=== PATIENT | male | born 1980 | race Two or more races ===

== ENCOUNTER 2016-08-21 21:16 | Observation (INO) | payer MEDICAID ==
--- NOTE | 2016-08-21 21:39 | EDPHY ---
HPI/HX/ROS/PE/MDM Narrative: Chief complaint: Cough, chills, alcohol intoxication HPI: 35-year-old homeless male presenting with 1 week of cough, difficulty breathing, productive sputum, fevers and chills. Patient does admit to drinking alcohol this evening. Patient states that he is coughing up green mucus and having some difficulty breathing. EMS noted that he was hypoxic in the 80s. This improved with supplemental oxygen. Patient does not smoke. Does drink heavily daily alcohol. Denies other drug use. ROS: 10 point Review of Systems is negative except as noted in the HPI. Physical exam: Gen: Awake, Alert, No Distress, slurred speech, smells of alcohol HEENT: Nose: no rhinorrhea Eyes: PERRLA, EOMI Mouth: Moist mucosa Neck: Supple, no JVD Chest: nontender, diffuse expiratory wheeze. No focal rales or rhonchi Heart: S1, S2 normal, no murmur Abd: Soft, non-tender, no guarding Back: no CVA tenderness, no midline tenderness Ext: no edema, non-tender Skin: no rash Neuro: CN II-XII intact, Sensation grossly intact, Strength 5/5 in bilateral upper and lower extremities ED Course: Chest XR Impression: Findings consistent with airways disease are noted. Dictated By: Yayo Lane MD Patient received DuoNeb. Was placed on supplemental oxygen. On reexamination he was feeling better. Wheezes had improved. Unfortunately he continued to remain hypoxic when attempting to wean off oxygen. He does not have a history of COPD. Chest x-ray does not show any focal infiltrate. I have discussed with the hospitalist, Dr. Hernandez. Head will be to admit the patient to the floor likely observation unit for further treatment of acute bronchitis with hypoxemia. - Data Points Laboratory Results: 08/21/16 21:28 Influenza Typ A,B (DFA) NEGATIVE FOR FLU (NEGATIVE) General Time Seen by Provider: 08/21/16 21:34 Initial Vital Signs: Initial Vital Signs Temperature (C) 36.8 C 08/21/16 21:19 Heart Rate 101 H 08/21/16 21:19 Respiratory Rate 18 08/21/16 21:19 Blood Pressure 133/89 H 08/21/16 21:19 O2 Sat (%) 89 L 08/21/16 21:19 O2 Delivery Mode Room Air O2 (L/minute) 2 Allergies/Adverse Reactions: No Known Allergies Allergy (Verified 06/07/16 17:02) Home Medications: Medication Instructions Recorded ARIPiprazole [Abilify 10 mg (*)] 10 mg PO DAILY 06/07/16 Hiv Meds 06/07/16 busPIRone [Buspar (*)] 5 mg PO 06/07/16 Departure - Departure Disposition: [facility] Clinical Impression: Alcohol dependence, Acute bronchitis Condition: Fair
[2016-08-21] MEDS ORDERED: IPRATROPIUM/ALBUTEROL 3 ML DEYVIAL IH ONE (21:53)
--- NOTE | 2016-08-21 22:16 | DX ---
PA and Lateral Chest History: Cough and shortness of breath in a 35-year-old male. Findings: The heart and mediastinal contours are normal. Pulmonary vascularity is normal. There is c entral peribronchial thickening. Streaky perihilar opacities are noted. There are no alveolar opaciti es seen to suggest pneumonia. No pleural effusion is identified. Impression: Findings consistent with airways disease are noted.
[2016-08-21] MEDS ORDERED: NS 1,000 ML IV ONE (23:18)
[2016-08-22] MEDS ORDERED: predniSONE 20 MG TAB PO SCH
[2016-08-22] MEDS ORDERED: ALBUTEROL 60 PUFFS/8 GM MDI IH SCH
[2016-08-22] MEDS ORDERED: AZITHROMYCIN 250 MG TAB PO SCH
[2016-08-22 00:15] LABS: % IMMATURE GRANULYOCYTES 0.4 % (0.0-1.1); ABSOLUTE IMMATURE GRANULOCYTES 0.02 10^3/uL (0.00-0.10); ADD DIFF? NO; ADD MORPH? NO; ADD SCAN? NO; ATYPICAL LYMPHOCYTE FLAG 30 (0-99); FRAGMENT RBC FLAG 0 (0-99); HEMATOCRIT 41.7 % (40.0-51.0); HEMOGLOBIN 13.9 g/dL (13.7-17.5); LEFT SHIFT FLG 0 (0-99); LIPEMIA HEMOLYSIS FLAG 80 (0-99); MEAN CELL HEMOGLOBIN 32.6 pg (27.9-34.1); MEAN CELL HEMOGLOBIN CONCENTR. 33.3 g/dL (32.4-36.7); MEAN CELL VOLUME 97.7 fL (81.5-99.8); PLATELET CLUMPS FLAG 10 (0-99); PLATELET COUNT 276 10^3/uL (150-400); RED BLOOD CELL COUNT 4.27 10^6/uL (4.40-6.38); RED CELL DISTRIBUTION WIDTH 14.9 % (11.5-15.2)
[2016-08-22 00:54] LABS: ANION GAP 9 mEq/L (8-16); CALCIUM 8.1 mg/dL (8.5-10.4); CARBON DIOXIDE 29 mEq/l (22-31); CHLORIDE 110 mEq/L (97-110); CREATININE 0.7 mg/dL (0.7-1.3); GLOMERULAR FILTRATION RATE > 60; GLUCOSE 112 mg/dL (70-100); POTASSIUM 4.4 mEq/L (3.5-5.2); SODIUM 148 mEq/L (134-144)
[2016-08-22] MEDS ORDERED: ALBUTEROL 3 ML DEYVIAL IH PRN (01:40)
[2016-08-22] MEDS ORDERED: ONDANSETRON 4 MG/2 ML VIAL IVP PRN (01:40)
[2016-08-22] MEDS ORDERED: ACETAMINOPHEN 325 MG TAB PO PRN (01:40)
[2016-08-22] MEDS ORDERED: ONDANSETRON DISINTEGRATING 4 MG TAB PO PRN (01:40)
[2016-08-22] MEDS ORDERED: chlordiazePOXIDE 25 MG CAP PO PRN (01:43)
[2016-08-22] MEDS ORDERED: LORazepam 2 MG/ML INJ IVP PRN (01:43)
[2016-08-22] MEDS ORDERED: THIAMINE HCL 500 MG in NS 100 ML IV ONE (01:43)
[2016-08-22] MEDS ORDERED: LORazepam 1 MG TAB PO PRN (01:43)
[2016-08-22] MEDS ORDERED: 1/2 NS 1,000 ML IV SCH (02:00)
--- NOTE | 2016-08-22 03:06 | GHP ---
[f rep st] HISTORY AND PHYSICAL DATE OF ADMISSION: 08/22/2016 CHIEF COMPLAINT: Shortness of breath. HISTORY OF PRESENT ILLNESS: This is a 35-year-old male with a history of asthma, who is homeless. Alice winchester says that over the last 2 weeks, he has had a productive cough with sputum production. He states t hat today he has been having more shortness of breath, probably due to the cold. He denies any fever s or chills. He also does drink alcohol and did actually come from the [facility]. He does go into F[place] at times. The patient also admits to being HIV positive. REVIEW OF SYSTEMS: A 10-point review of systems was obtained and except as above was negative. PAST MEDICAL HISTORY: 1. HIV positive. He is not on any medications. He was seeing a physician in [place], [place]. 2. PTSD/bipolar/possible schizophrenia. MEDICATIONS: None. SOCIAL HISTORY: He does smoke marijuana. No tobacco. He does drink significant alcohol. Moved her e recently from [place], [place]. FAMILY HISTORY: Reviewed and not contributory. PHYSICAL EXAM: VITAL SIGNS: Afebrile, blood pressure is 133/89, heart rate of 101, oxygen saturatio n 89% on 2 L. GENERAL: The patient is well developed, no apparent distress. HEENT: Nonicteric scl erae. Extraocular movements intact. Moist mucous membranes. NECK: Supple. No thyromegaly. LUNGS : Good effort. Decreased breath sounds, but no wheezes or rhonchi. CARDIOVASCULAR: Regular rate a nd rhythm. No murmurs or gallops. ABDOMEN: Positive bowel sounds. Soft, nontender, nondistended. No hepatosplenomegaly. EXTREMITIES: No clubbing, cyanosis, or edema. SKIN: Without rash. Turgor intact. NEUROLOGIC: Alert and oriented x3. Moving all 4 extremities equally. PSYCH: Normal affec t. LABS: CBC is normal. Chemistry does show a sodium of 148, but otherwise normal. Influenza is negat charlene. Chest x-ray, I personally reviewed and interpreted, does not show pneumonia. ASSESSMENT: This is a 35-year-old male presenting with a history of human immunodeficiency virus, presenting with asthma exacerbation. PLAN: 1. Asthma exacerbation. Patient actually sounds pretty good, although he is a little bit hypoxic. We will start with prednisone as well as nebulizer treatments. Since he has had a cough for 2 weeks, we will add azithromycin as well. 2. HIV. We will check a CD4 count. 3. Alcoholism with possible alcohol withdrawal. We will place him on CIWA protocol. 4. Psychiatric disorders. Continue to monitor. /[id number]/MODL
[2016-08-22] MEDS: predniSONE 20 MG TAB PO SCH ×2 (03:33→08:20)
[2016-08-22] MEDS: AZITHROMYCIN 250 MG TAB PO SCH ×2 (03:33→08:19)
[2016-08-22] MEDS: IPRATROPIUM/ALBUTEROL 3 ML DEYVIAL IH SCH ×2 (05:24→10:01)
[2016-08-22 08:16] LABS: % IMMATURE GRANULYOCYTES 0.9 % (0.0-1.1); ABSOLUTE IMMATURE GRANULOCYTES 0.05 10^3/uL (0.00-0.10); ADD DIFF? NO; ADD MORPH? NO; ADD SCAN? NO; ATYPICAL LYMPHOCYTE FLAG 10 (0-99); FRAGMENT RBC FLAG 0 (0-99); HEMATOCRIT 40.5 % (40.0-51.0); HEMOGLOBIN 13.5 g/dL (13.7-17.5); LEFT SHIFT FLG 10 (0-99); LIPEMIA HEMOLYSIS FLAG 80 (0-99); MEAN CELL HEMOGLOBIN 32.7 pg (27.9-34.1); MEAN CELL HEMOGLOBIN CONCENTR. 33.3 g/dL (32.4-36.7); MEAN CELL VOLUME 98.1 fL (81.5-99.8); MEAN PLATELET VOLUME 9.2 fL (8.7-11.7); PLATELET CLUMPS FLAG 0 (0-99); PLATELET COUNT 252 10^3/uL (150-400); RED BLOOD CELL COUNT 4.13 10^6/uL (4.40-6.38); RED CELL DISTRIBUTION WIDTH 14.9 % (11.5-15.2)
[2016-08-22 08:44] LABS: ANION GAP 11 mEq/L (8-16); CALCIUM 8.3 mg/dL (8.5-10.4); CARBON DIOXIDE 26 mEq/l (22-31); CHLORIDE 106 mEq/L (97-110); CREATININE 0.7 mg/dL (0.7-1.3); GLOMERULAR FILTRATION RATE > 60; GLUCOSE 115 mg/dL (70-100); MAGNESIUM 1.6 mg/dL (1.6-2.3); POTASSIUM 4.4 mEq/L (3.5-5.2); SODIUM 143 mEq/L (134-144)
[2016-08-22 09:08] VITALS: BP 139/88; TEMP 98.4
[2016-08-22 10:03] VITALS: PULSE 98; RESP 18; O2SAT 94
[2016-08-22] MEDS ORDERED: chlordiazePOXIDE 25 MG CAP PO ONE (10:30)
[2016-08-22] MEDS ORDERED: ALBUTEROL 60 PUFFS/8 GM MDI IH PRN (13:50)
--- NOTE | 2016-08-22 16:18 | GDS ---
[f rep st] DISCHARGE SUMMARY DISCHARGE DIAGNOSES: Include: 1. Acute asthma exacerbation. 2. Human immunodeficiency virus. 3. Alcohol withdrawal. 4. Posttraumatic stress disorder. 5. Bipolar disorder. HISTORY OF PRESENT ILLNESS: A 35-year-old male, who presented with complaints of shortness of breath . For details of patient's initial presentation, please see the history and physical dated 7. CONSULTATIVE SERVICES: None. PROCEDURES: Patient had a PA and lateral chest x-ray that showed airways disease, no infiltrates. HOSPITAL COURSE BY ISSUE: 1. Acute asthma exacerbation: Patient presented hypoxic and wheezy, initiated on steroids, inhaled beta agonist. At the time of his disposition, patient is satting mid 90s on room air and his lung ex am is clear. Will continue 4 additional days of prednisone burst with inhaled albuterol as an outpat ient. additionally, because his symptoms had extended for a long prior to his presentation he has bee n initiated on a Z-Mynor to treat any atypical pneumonias. Patient will complete that Z-Mynor after disp osition. 2. Acute alcohol withdrawal: Patient is quite tremulous on examination. He is currently a resident at the [facility], treating with Eliza and discharging back to the [facility] for ongoing cessation support. MEDICATIONS AT THE TIME OF DISPOSITION: Please reference medication reconciliation printed on 2016. PENDING STUDIES AT THE TIME OF THIS DICTATION: None. FOLLOWUP APPOINTMENTS: For this patient include with his primary care provider for reinitiation of h is home medications, including his antiretrovirals. I spent greater than 30 minutes in the planning and coordination of this discharge. /[id number]/MODL
[2016-08-23] MEDS ORDERED: THIAMINE HCL 500 MG in NS 100 ML IV SCH (09:00)
[2016-08-24 08:13] LABS: H/S RATIO 0.4 (>=0.9); LYMPHOCYTES 1.28 thou/mcL (0.82-2.84)
[2016-08-25] MEDS ORDERED: THIAMINE HCL 100 MG TAB PO SCH (09:00)
== END 2016-08-22 15:00 | disposition home or self-care (01) ==
LOC: EDUNIT# → F2W 08-22 03:12
PROVIDERS: ADMIT Internal Medicine; ATTEND Internal Medicine
DX: J45.901 Unspecified asthma with (acute) exacerbation (principal); B20 Human immunodeficiency virus [HIV] disease; F10.239 Alcohol dependence with withdrawal, unspecified; F43.10 Post-traumatic stress disorder, unspecified; F31.9 Bipolar disorder, unspecified; F12.10 Cannabis abuse, uncomplicated; Z59.0 Homelessness
CPT/HCPCS: 71020; 96360; 99285; G0378; 86359-90; 86360-90; J3411; J7512

== ENCOUNTER 2016-08-29 19:00 | Emergency (ER) | payer MEDICAID ==
--- NOTE | 2016-08-29 19:05 | EDPHY ---
H & P Smoking Status: Current every day smoker Time Seen by Provider: 08/29/16 19:05 HPI/ROS: CHIEF COMPLAINT: Altered mental status HISTORY OF PRESENT ILLNESS: Brought in by EMS found him in back of a building arguing with someone else. Skated and could stand up. Brought to the ED on are cold. REVIEW OF SYSTEMS: Patient denies trauma or any medical complaints for review of systems is limited by his intoxication. PAST MEDICAL HISTORY: Per previous chart includes HIV and alcoholism. Per Dr. Perez's discharge summary dated 08/22/2016, includes asthma and bipolar disorder. Social history: Alcohol today General Appearance: Lethargic, awakens to loud voice or sternal rub. Eyes: No scleral icterus. ENT, Mouth: Normal mucous membranes. Sticks out his tongue on command, no tongue laceration or abrasion. No external evidence of head or neck trauma. Respiratory: Normal respiratory effort, breath sounds equal, lungs are clear to auscultation. Cardiovascular: Regular rate and rhythm. Gastrointestinal: Abdomen is soft and non tender. Neurological: Lethargic, slurred speech, limited response to questions. Does follow commands. Spontaneous movement of all 4 extremities. Skin: Warm and dry, no rashes. No laceration or abrasion. Musculoskeletal: No extremity deformity or tenderness. No cervical thoracic or lumbar spine tenderness. Psychiatric: Unable on arrival due to altered mental status. Emergency Department course/MDM: I-STAT performed in emergency department. Patient presentation consistent with his self admitted alcohol ingestion. I-STAT performed shows normal glucose. Signed out to Dr. Rasheed at 9:30 p.m. with plan for serial examinations and discharge to detox when clinically sober. (Jordy Rios) Constitutional: Initial Vital Signs Temperature (C) 36.4 C 08/29/16 19:07 Heart Rate 85 08/29/16 19:07 Respiratory Rate 16 08/29/16 19:07 Blood Pressure 119/81 H 08/29/16 19:07 O2 Sat (%) 87 L 08/29/16 19:07 O2 Delivery Mode Nasal Cannula O2 (L/minute) 2 Allergies/Adverse Reactions: No Known Allergies Allergy (Verified 06/07/16 17:02) Home Medications: Medication Instructions Recorded ARIPiprazole [Abilify 10 mg (*)] 20 mg PO DAILY 08/22/16 Albuterol [Ventolin Hfa Inhaler] 2 puffs IH Q2 PRN #1 mdi 08/22/16 Azithromycin [Zithromax] 250 mg PO DAILY #5 tab 08/22/16 Dolutegravir Sodium [Tivicay] 50 mg PO DAILY 08/22/16 Emtricitabine/Tenofovir [Truvada 1 tab PO DAILY 08/22/16 200MG/300MG (*)] busPIRone [Buspar (*)] 10 mg PO BID 08/22/16 predniSONE 40 mg PO DAILY #8 tablet 08/22/16 Medical Decision Making Differential Diagnosis: Differential diagnosis considered for altered mental status including but not limited to hypoglycemia, infectious process, electrolyte abnormality, head injury and intoxicants. (Jordy Rios) Other Provider: I assumed care of this patient from Dr. Rios at 9:30 p.m.. We are awaiting improvement in his functional status. I examined him at 11:15 p.m.. At that time he is asleep, response to vigorous stimulation with brief eye opening, quickly falls back to sleep. He is not yet appropriate for [facility] to the [facility]. His care will be transferred to Dr. Soto at 11: 15 p.m.. (Natalie Rasheed) - Data Points Laboratory Results: 08/29/16 19:40 POC Hgb 16.0 gm/dL (14.5-17.3) POC Hct 47 % (42.8-50.6) POC Sodium 150 H mEq/L (134-144) POC Potassium 3.6 mEq/L (3.3-5.0) POC Chloride 111 H mEq/L (96-108) POC BUN 7 mg/dL (7-23) POC Creatinine 1.4 mg/dL (0.8-1.5) POC Glucose 89 mg/dL (70-100) Point of Care Test Results: 08/29/16 19:40 POC Sodium 150 H POC Potassium 3.6 POC Chloride 111 H POC BUN 7 POC Creatinine 1.4 POC Glucose 89 Departure - Departure Disposition: Home, Routine, Self-Care Clinical Impression: Alcohol intoxication Qualifiers: Complication of substance-induced condition: uncomplicated Qualifier Code: ( F10.120) Alcohol abuse with intoxication, uncomplicated Condition: Good Instructions: Alcohol Intoxication (ED) Referrals: [facility] [Outside] - As per Instructions
[2016-08-29 19:09] VITALS: RESP 16; TEMP 97.5
[2016-08-30 02:46] VITALS: BP 103/66; PULSE 68; O2SAT 95
[2016-08-30] MEDS ORDERED: CHLORDIAZEPOXIDE 25MG PREPK#6 BTL TAKEHOME ONE (02:55)
== END 2016-08-30 03:05 | disposition home or self-care (01) ==
LOC: EDUNIT# → EDBD
DX: F10.120 Alcohol abuse with intoxication, uncomplicated (principal); F17.200 Nicotine dependence, unspecified, uncomplicated
CPT/HCPCS: 82947-QW

== ENCOUNTER 2016-08-30 19:54 | Emergency (ER) | payer MEDICAID ==
[~2016-08-30 19:54] MED LIST: OSELTAMIVIR PHOSPHATE 75 MG CAP PO SCH
[2016-08-30 20:20] VITALS: TEMP 98.4
[2016-08-30] MEDS ORDERED: BENZONATATE 100 MG CAP PO ONE (20:40)
[2016-08-30] MEDS ORDERED: IBUPROFEN 200 MG TAB PO ONE (20:40)
[2016-08-30] MEDS ORDERED: OSELTAMIVIR PHOSPHATE 75 MG CAP PO ONE (20:41)
--- NOTE | 2016-08-30 20:46 | EDPHY ---
H & P Time Seen by Provider: 08/30/16 20:23 HPI/ROS: HPI Cough, sore throat, joint aches, headache. 35-year-old male by ambulance from the [facility]. Patient was seen here last night for alcohol intoxication and disposition to the [facility]. He was seen here and admitted for 1 night on August 22 for bronchitis with hypoxia. He was treated with azithromycin at that time. He presents now complaining of a sore throat, dry cough, joint aches and intermittent gradual onset headache since earlier today. ROS: Constitutional: No fever, no chills. As above. Eyes: No discharge. No changes in vision. ENT: As above. No nasal congestion or rhinorrhea. Respiratory: As above. No shortness of breath. Cardiac: No chest pain, no palpitations. Gastrointestinal: No abdominal pain, no vomiting, no diarrhea. Genitourinary: No hematuria. No dysuria or increased frequency with urination. Musculoskeletal: No back pain. No neck pain. No myalgias or arthralgias. Skin: No rashes. Neurological: As above. No focal weakness or altered sensation. Past medical history: Asthma, bronchitis, alcohol abuse, alcohol withdrawal, PTSD, bipolar, HIV. Last CD4 count was 195 on admission September 11. Social history: Homeless. Smoker. As above. Physical Exam: General Appearance: Alert, no distress. This patient is responding to questions appropriately and in full sentences. This patient appears well- hydrated and well-nourished. Eyes: Pupils equal and round no pallor or injection. No lid edema, erythema or injection. ENT, Mouth: Mucous membranes are moist. The pharyngeal tissues are mildly erythematous. No edema or swelling. No asymmetry suggestive of abscess. No exudates. Respiratory: There are no retractions, lungs are clear to auscultation with good air movement bilaterally. No wheezing. No rhonchi. No tachypnea. Cardiovascular: Regular rate and rhythm. No murmur. Neurological: Motor sensory function is grossly intact. Cranial nerves are normal. Gait is normal. Skin: Warm and dry, no rashes. Musculoskeletal: Neck is supple and nontender. No cervical, submental, submandibular lymphadenopathy. Extremities are symmetrical. All joints range without pain or impingement. Psychiatric: No agitation. No depression. Database: EKG: Imaging: Chest x-ray PA and lateral; the cardiac mediastinal silhouette is unremarkable. No evidence of infiltrate or pneumothorax. Mild bronchitis. No other acute cardiopulmonary disease process noted. Interpreted by me. Procedures: Emergency department course: Patient's vital signs were reviewed. Tachypnea at 24 in triage. Otherwise afebrile vital signs were unremarkable. Moderately hypertensive. He will be sent for chest x-ray. He was given 800 mg of oral ibuprofen and 200 mg of Tessalon parole. His presentation is consistent with influenza. He was given 75 mg of Tamiflu. 9:00 p.m., patient re-evaluated. Resting comfortably at this time. Results of his chest x-ray discussed with him. He feels comfortable being discharged. We will fill his prescription for Tamiflu through our assistance program. I discussed ibuprofen dosing for his sore throat. Follow up with his primary care physician at [facility] was reviewed. Return to emergency department precautions discussed. All of his questions were answered. He was discharged in good condition. Differential Diagnosis: The differential diagnosis on this patient includes but is not limited to viral upper respiratory infection, influenza, bronchitis. Serious bacterial infection unlikely. This represents a partial list of diagnoses considered. These considerations are based on history, physical exam, past history, reassessment and diagnostic testing. Smoking Status: Current every day smoker Constitutional: Initial Vital Signs Temperature (C) 36.9 C 08/30/16 20:13 Heart Rate 90 08/30/16 20:13 Respiratory Rate 24 H 08/30/16 20:13 Blood Pressure 162/102 H 08/30/16 20:13 O2 Sat (%) 97 08/30/16 20:13 O2 Delivery Mode Room Air Allergies/Adverse Reactions: No Known Allergies Allergy (Verified 08/30/16 20:11) Home Medications: Medication Instructions Recorded ARIPiprazole [Abilify 10 mg (*)] 20 mg PO DAILY 08/22/16 Albuterol [Ventolin Hfa Inhaler] 2 puffs IH Q2 PRN #1 mdi 08/22/16 Azithromycin [Zithromax] 250 mg PO DAILY #5 tab 08/22/16 Dolutegravir Sodium [Tivicay] 50 mg PO DAILY 08/22/16 Emtricitabine/Tenofovir [Truvada 1 tab PO DAILY 08/22/16 200MG/300MG (*)] busPIRone [Buspar (*)] 10 mg PO BID 08/22/16 predniSONE 40 mg PO DAILY #8 tablet 08/22/16 Oseltamivir Phosphate [Tamiflu 75 75 mg PO BID #10 cap 08/30/16 mg (RX)] Departure - Departure Disposition: Home, Routine, Self-Care Clinical Impression: Influenza, Bronchitis Condition: Good Instructions: Influenza (ED) Additional Instructions: Read and follow provided instructions. Follow-up with your primary care physician in 2-3 days, [facility], at the walk-in clinic off of [facility]. Take medication as prescribed through entire course of treatment. Ibuprofen dosin mg every 6 hours with meals for the next 3 days only. Return to the emergency department for worsening sore throat, cough, high fever or other serious concerns. Referrals: NONE *PRIMARY CARE P,. [Primary Care Provider] - As per Instructions [facility] [Outside] - As per Instructions Prescriptions: Oseltamivir Phosphate [Tamiflu 75 mg (RX)] 75 mg PO BID #10 cap
--- NOTE | 2016-08-30 20:57 | DX ---
Chest, PA and lateral. HISTORY: Dyspnea, cough. Comparison: 21 August 2016. FINDINGS: Heart size is within normal limits. Pulmonary vascularity appears normal. The lungs are keaton ar. No evidence for pleural effusion or pneumothorax. No significant osseous abnormality. IMPRESSION: Normal chest x-ray.
[2016-08-30 21:35] VITALS: BP 153/89; PULSE 91; RESP 16; O2SAT 93
== END 2016-08-30 21:35 | disposition home or self-care (01) ==
DX: J11.1 Influenza due to unidentified influenza virus with other respiratory manifestations (principal); J40 Bronchitis, not specified as acute or chronic; F17.200 Nicotine dependence, unspecified, uncomplicated; B20 Human immunodeficiency virus [HIV] disease

== ENCOUNTER 2017-02-04 08:16 | Emergency (ER) | payer MEDICAID ==
[2017-02-04 08:22] VITALS: RESP 16; TEMP 98.2
[2017-02-04] MEDS ORDERED: SULFAMETHOX/TMP 800/160 MG 1 TAB PO ONE (09:17)
[2017-02-04] MEDS ORDERED: CEPHALEXIN 500 MG CAP PO ONE (09:17)
[2017-02-04] MEDS ORDERED: IBUPROFEN 200 MG TAB PO ONE (09:17)
--- NOTE | 2017-02-04 09:17 | EDPHY ---
H & P Time Seen by Provider: 02/04/17 08:59 HPI/ROS: CHIEF COMPLAINT: Tenderness, erythema left suprapubic and inguinal region HISTORY OF PRESENT ILLNESS: 36-year-old male HIV-positive nondetectable viral load followed at the [facility], shaves his suprapubic air, complaining of 5 days of progressive erythema, soft tissue swelling to the left suprapubic and inguinal region. He has been draining the area himself. He is currently on [facility] He is followed at the [facility]. He denies: Fever, chills, nausea, vomiting, flu-like symptoms. PHYSICAL EXAM (Prior to examination, patient consented to physical exam, hands were washed and my usual and customary physical exam procedures followed) 1) GENERAL: Well-developed, well-nourished, alert and oriented. Appears to be in no acute distress. 2) HEAD: Normocephalic 3) HEENT: sclera anicteric 4) LUNGS: Breathing comfortably. 5) SKIN: left inguinal erythema, induration with central fluctuance and central lesion which is currently nondraining. [6) : Normal male external genitalia, scrotum nontender no erythema no evidence of Natalia's gangrene Smoking Status: Former smoker Constitutional: Initial Vital Signs Temperature (C) 36.8 C 02/04/17 08:18 Heart Rate 84 02/04/17 08:18 Respiratory Rate 16 02/04/17 08:18 Blood Pressure 137/90 H 02/04/17 08:18 O2 Sat (%) 96 02/04/17 08:18 Allergies/Adverse Reactions: No Known Allergies Allergy (Verified 02/04/17 08:17) Home Medications: Medication Instructions Recorded Dolutegravir Sodium [Tivicay] 50 mg PO DAILY 08/22/16 Emtricitabine/Tenofovir [Truvada 1 tab PO DAILY 08/22/16 200MG/300MG (*)] Cephalexin [Keflex] 500 mg PO QID 10 Days 02/04/17 Sulfamethox/Tmp 800/160 mg 1 tab PO BID@1000,2200 10 Days 02/04/17 [Bactrim Ds] MDM/Departure - MDM Procedures: Procedure: Abscess drainage. The patient's abscess was located on the left inguinal region. I obtained verbal consent from the patient to drain the abscess who was informed about the possibility of bleeding and pain. The abscess was incised with a scalpel and a mild amount of purulent drainage was expressed. I irrigated the wound and placed some packing. The patient tolerated the procedure well. Culture obtained and pending The procedure was performed by myself. ED Course/Re-evaluation: This patient has no evidence of Natalia's gangrene, no evidence of sepsis, he has a nondetectable viral load. It is currently 9:15 a.m.. He is planning on following up at the [facility] later on today. Recommend he keep this appointment. Started on dual antibiotic therapy Bactrim and Keflex. His tetanus is up-to-date per patient. Recommend he not shave his pubic hair for period of time. Usual and customary wound precautions instructions provided. - Depart Disposition: Home, Routine, Self-Care Clinical Impression: Abscess of left groin Condition: Good Instructions: Abscess (ED) Additional Instructions: Return to the ER if you develop redness, swelling, discharge, warmth to the wound, or any other symptoms that concern you. Stand Alone Forms: Work Excuse Prescriptions: Cephalexin [Keflex] 500 mg PO QID 10 Days Sulfamethox/Tmp 800/160 mg [Bactrim Ds] 1 tab PO BID@1000,2200 10 Days Referrals: [facility] [Outside] - 02/04/17 12:00 pm (Go to the [facility] today)
[2017-02-04 09:27] VITALS: BP 126/82; PULSE 78; O2SAT 95
== END 2017-02-04 09:38 | disposition home or self-care (01) ==
PROC: 0Y960ZZ Drainage of Left Inguinal Region, Open Approach (ICD-10-PCS; principal; 2017-02-04)
DX: L02.214 Cutaneous abscess of groin (principal); Z87.891 Personal history of nicotine dependence

== ENCOUNTER 2017-02-06 10:07 | Inpatient (IN) | payer MEDICAID ==
--- NOTE | 2017-02-05 18:35 | GHP ---
[f rep st] PREOP HISTORY AND PHYSICAL DATE OF ADMISSION: 02/06/2017 HISTORY OF PRESENT ILLNESS: The patient is a 36-year-old male, with HIV who is currently incarcerat ed on a work release program who was seen in the ED yesterday with complaints of a tender, swollen, red left groin. He had an I and D in the ER with culture. Since then, he has seen his nurse dillon milian at [facility] who referred him to us for further drainage. Cultures dailey ve grown out MRSA. His antibiotics were changed from Keflex to Bactrim. He denies fevers or chills but his groin is still very tender and it affects his walking. He is taking some Aleve without muc h relief. The pain is starting to extend his left testicle and is giving him migraine headaches. Alice winchestre says that his HIV is currently undetectable. Office drainage was done today however, we found mostly induration and no discrete purulent pocket. Upon expression, it is clear that he has mixed purulence in the subcutaneous tissue and needs furth er washout and debridement. PAST MEDICAL HISTORY: HIV, PTSD, depression, schizophrenia, bipolar, anxiety, alcohol abuse. PAST SURGICAL HISTORY: Denies aside from I and D as described above. MEDICATIONS: Descovy, Tivicay and Bactrim. ALLERGIES: No known drug allergies. FAMILY MEDICAL HISTORY: Includes liver cirrhosis. SOCIAL HISTORY: The patient is a former drinker. He does not smoke and he is currently incarcerate d on a work release program. REVIEW OF SYSTEMS: A 10-point review of systems negative except for that in the HPI, please note. PHYSICAL EXAMINATION: GENERAL: A pleasant, alert and oriented 36-year-old male, in no acute distre ss. Nontoxic appearing. HEENT: Normocephalic, atraumatic. Pupils equal and round. CHEST: Clear to auscultation bilaterally. CARDIAC: Regular rate and rhythm. ABDOMEN: Soft, with lower left q uadrant into groin with significant erythema, induration, warmth and tenderness. The erythema exten ds along his hip down into his groin. EXTREMITIES: As described above in abdominal exam otherwise warm and dry, well perfused without edema. GENITAL: Testicles nontender, noninflamed. IMPRESSION: This is a 36-year-old male, with a methicillin resistant Staphylococcus aureus abscess of the left groin, not fully cleaned and drained. PLAN: Plan is to proceed with incision and debridement in the operating room for better clearance o f infection. We told him his groin incision will be left open. We will continue him on his Bactrim for now. I have ordered some preop vancomycin IV. Risks and options have been discussed and he re quests to proceed. Please say office drainage was done today however we did not find sees me however was found mostly i nduration and no discrete. Lucina pocket. Upon expression is clear that he has makes. Limbs in the subcutaneous tissues and needs further washout and debridement. /[id number]/MODL
--- NOTE | 2017-02-06 10:21 | PDHPUP ---
History & Physical Update H&P update statement: This history and physical update is based on an assessment of the patient which was completed after admission or registration (within 24 hours), but prior to the surgery/procedure. H&P changes: no changes
[2017-02-06] MEDS ORDERED: VANCOMYCIN PHARMACY TO DOSE MISC ONE (10:32)
[2017-02-06] MEDS ORDERED: VANCOMYCIN 1.25 GM in D5W 250 ML IV ONE (11:00)
[2017-02-06] MEDS ORDERED: LIDOCAINE 1% 2 ML INJ ID PRN (11:10)
[2017-02-06] MEDS ORDERED: LR 1,000 ML IV ONE (11:10)
[2017-02-06] MEDS ORDERED: BUPIVACAINE 0.5% 30 ML SDV ONE (11:57)
[2017-02-06] MEDS ORDERED: MIDAZOLAM 2 MG/2 ML VIAL IVP ONE (12:45)
--- NOTE | 2017-02-06 12:45 | PDANEPAE ---
ANE History of Present Illness here for I and D groin. Pt is HIV+ former ETOH abuse ANE Past Medical History - Cardiovascular History Hx Hypertension: No Hx Arrhythmias: No Hx Chest Pain: No Hx Coronary Artery / Peripheral Vascular Disease: No Hx CHF / Valvular Disease: No Hx Palpitations: No - Pulmonary History Hx COPD: No Hx Asthma/Reactive Airway Disease: No Hx Recent Upper Respiratory Infection: No Hx Oxygen in Use at Home: No Hx Sleep Apnea: No Sleep Apnea Screening Result - Last Documented: Negative - Endocrine History Hx Diabetes: No - Renal History Hx Renal Disorders: Yes Renal History Comment: "sharp pain L side above kidneys" - Liver History Hx Hepatic Disorders: No - Neurological & Psychiatric Hx Hx Neurological and Psychiatric Disorders: No - Cancer History Hx Cancer: No - Congenital Disorder History Hx Congenital Disorders: No - GI History Hx Gastrointestinal Disorders: Yes Gastrointestinal History Comment: "stomach ache,diarrhea" - Other Health History Other Health History: L groin/genital/top of L leg ABSCESS. "arthritis" in joints - Chronic Pain History Chronic Pain: No - Surgical History Prior Surgeries: unknown ANE Review of Systems - Exercise capacity Exercise capacity: >=4 METS METS (RN): 4 METS ANE Patient History - Allergies Allergies/Adverse Reactions: No Known Allergies Allergy (Verified 02/04/17 08:17) - Home Medications Home medications: home medication list seen and reviewed Home Medications: Dolutegravir Sodium [Tivicay] 50 mg PO DAILY 08/22/16 [Last Taken 02/06/17] Descovy 200-25 mg Tablet 02/06/17 [Last Taken 02/06/17] traMADol [Ultram 50 mg (*)] 50 mg PRN 02/06/17 [Last Taken 02/06/17] - NPO status NPO Since - Liquids (Date): 02/05/17 NPO Since - Liquids (Time): 22:00 NPO Since - Solids (Date): 02/05/17 NPO Since - Solids (Time): 19:00 - Smoking Hx Smoking Status: Former smoker - Alcohol Use Alcohol Use: Sober (fomer abuse) ANE Labs/Vital Signs - Vital Signs Blood Pressure: 121/84 Heart Rate: 81 Respiratory Rate: 16 O2 Sat (%): 94 Height: 185.42 cm Weight: 79.832 kg ANE Physical Exam - Airway Neck exam: FROM Mallampati Score: Class 1 Mouth exam: normal dental/mouth exam - Pulmonary Pulmonary: no respiratory distress - Cardiovascular Cardiovascular: regular rate and rhythym - ASA Status ASA Status: III ANE Anesthesia Plan Anesthesia Plan: GA w LMA
[2017-02-06] MEDS ORDERED: MIDAZOLAM 2 MG/2 ML VIAL ONE (12:56)
[2017-02-06] MEDS ORDERED: PROPOFOL/EMULSION 500 MG/50 ML BOTTLE IV ONE (12:59)
[2017-02-06] MEDS ORDERED: fentaNYL 100 MCG/2 ML INJ ONE ×2 (13:02→13:48)
[2017-02-06] MEDS ORDERED: HYDROmorphONE/DILAUDID 1 MG/ML SYR IVP PRN (13:39)
[2017-02-06] MEDS ORDERED: fentaNYL 100 MCG/2 ML INJ IVP PRN (13:39)
[2017-02-06] MEDS ORDERED: NALOXONE HCL 0.4 MG/ML INJ IVP PRN (13:39)
[2017-02-06] MEDS ORDERED: OXYCODONE/APAP 5/325 TAB PO PRN (13:39)
[2017-02-06] MEDS ORDERED: ONDANSETRON 4 MG/2 ML VIAL IVP PRN ×2 (13:39→14:47)
[2017-02-06] MEDS ORDERED: HYDROCODONE/APAP 5/325 TAB PO PRN (13:39)
[2017-02-06] MEDS ORDERED: THROMBIN (BOVINE) 5,000 UNIT VIAL TP ONE (13:53)
[2017-02-06] MEDS ORDERED: ACETAMINOPHEN 325 MG TAB PO PRN (14:47)
[2017-02-06] MEDS: HYDROCODONE/APAP 5/325 TAB PO PRN ×2 (15:49→23:14)
[2017-02-06] MEDS: D5W 1/2 NS W/ 20 KCl/L 1,000 ML IV SCH (15:49)
[2017-02-06 17:11] LABS: ANION GAP 5 mEq/L (8-16); CALCIUM 8.9 mg/dL (8.5-10.4); CARBON DIOXIDE 24 mEq/l (22-31); CHLORIDE 105 mEq/L (97-110); CREATININE 1.3 mg/dL (0.7-1.3); GLOMERULAR FILTRATION RATE > 60; GLUCOSE 95 mg/dL (70-100); POTASSIUM 3.9 mEq/L (3.5-5.2); SODIUM 134 mEq/L (134-144)
--- NOTE | 2017-02-06 17:23 | POSTOPPROG ---
Post Op Note Date of Operation: 02/06/17 Surgeon: Isaiah Garcia Anesthesiologist: CANDELARIO Anesthesia: GET(General Endotracheal) Pre-op Diagnosis: NECROTIZING INFECTION LEFT GROIN Post-op Diagnosis: SAME Indication: NONHEALING MRSA INFECTION Procedure: I AND D AND EXCISIONAL DEBRIDEMENT LEFT GROIN Findings: MULTIPLE POCKETS OF NECROTIZING MRSA INFECTION Inf/Abcess present in the surg proc area at time of surgery?: Yes Depth: Deep Incisional (Fascial) EBL: Minimal Complications: NONE Specimen(s): ABSCESS CAVITY
[2017-02-06 17:45] LABS: HEMATOCRIT 37.4 % (40.0-51.0); HEMOGLOBIN 12.6 g/dL (13.7-17.5); MEAN CELL HEMOGLOBIN 34.1 pg (27.9-34.1); MEAN CELL HEMOGLOBIN CONCENTR. 33.7 g/dL (32.4-36.7); MEAN CELL VOLUME 101.1 fL (81.5-99.8); RED BLOOD CELL COUNT 3.7 10^6/uL (4.40-6.38); RED CELL DISTRIBUTION WIDTH 13.2 % (11.5-15.2)
[2017-02-06] MEDS ORDERED: NS 1,000 ML IV SCH (18:30)
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
[2017-02-07] MEDS: D5W 1/2 NS W/ 20 KCl/L 1,000 ML IV SCH (01:48)
[2017-02-07] MEDS: VANCOMYCIN 1.25 GM in D5W 250 ML IV SCH ×2 (01:48→12:49)
[2017-02-07 04:43] LABS: HEMATOCRIT 35.1 % (40.0-51.0); HEMOGLOBIN 11.9 g/dL (13.7-17.5); MEAN CELL HEMOGLOBIN 34.3 pg (27.9-34.1); MEAN CELL HEMOGLOBIN CONCENTR. 33.9 g/dL (32.4-36.7); MEAN CELL VOLUME 101.2 fL (81.5-99.8); RED BLOOD CELL COUNT 3.47 10^6/uL (4.40-6.38); RED CELL DISTRIBUTION WIDTH 13.2 % (11.5-15.2)
[2017-02-07 05:09] LABS: ANION GAP 10 mEq/L (8-16); CALCIUM 8.8 mg/dL (8.5-10.4); CARBON DIOXIDE 22 mEq/l (22-31); CHLORIDE 108 mEq/L (97-110); CREATININE 1.4 mg/dL (0.7-1.3); GLOMERULAR FILTRATION RATE 57; GLUCOSE 103 mg/dL (70-100); POTASSIUM 4.3 mEq/L (3.5-5.2); SODIUM 140 mEq/L (134-144)
[2017-02-07] MEDS: HYDROCODONE/APAP 5/325 TAB PO PRN ×2 (06:26→12:49)
[2017-02-07] MEDS: Emtricitabine/Tenofov Alafenam [Descovy 200-25 Mg Tablet] 1 EACH) PO SCH ×2 (08:02→10:35)
[2017-02-07] MEDS: HYDROmorphONE/DILAUDID 1 MG/ML SYR IVP PRN ×2 (08:21→10:34)
[2017-02-07] MEDS ORDERED: Dolutegravir Sodium [Tivicay] 50 MG PO SCH (09:00)
--- NOTE | 2017-02-07 09:35 | GOP ---
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 ANESTHESIOLOGIST: Dr. Loza. PREOPERATIVE DIAGNOSIS: Necrotizing infection, left groin with MRSA. POSTOPERATIVE DIAGNOSIS: Necrotizing infection, left groin with MRSA. PROCEDURE PERFORMED: I and D and excisional debridement. FINDINGS: The patient was found to have multiple pockets of infection in the left groin area. ESTIMATED BLOOD LOSS: Less than 25 cc. DESCRIPTION OF PROCEDURE: The patient was taken to the operating room where he received satisfactor y general endotracheal anesthesia by Dr. Loza. Placed in supine position, prepped and draped in u sual sterile fashion. An elliptical incision was made of the previous I and D area, excising all th e necrotic tissue that could be visualized. The wounds were massaged and other pockets of purulent material were dissected free and excised. Hemostasis was obtained with electrocautery. The wound w as infiltrated with some 0.5% Marcaine and some topical thrombin was placed in the cavity, which was then packed with iodoform gauze. He tolerated the procedure well. There were no complications. Alice winchester was taken to the recovery room in good condition. /[id number]/MODL
[2017-02-07] MEDS: Dolutegravir Sodium [Tivicay] 50 MG PO SCH (10:36)
[2017-02-07] MEDS: traMADol 50 MG TAB PO PRN (11:06)
--- NOTE | 2017-02-07 11:12 | WOCRNPDOC ---
DAYANARA Advanced Assessment Note - Skin Integrity Problem, Advanced Assess Left Groin Dressing Type: Gauze, Plain Packing Dressing Description: Saturated Exudate Characteristic(s): Serosanguinous Integumentary Issue Intervention: Dressing Changed Evon Wound Tissue: Painful/Tender Evon Wound Swelling: Moderate Wound Bed Color: Red, Yellow Wound Bed Constitution: Smooth Tissue (100%), Subcutaneous Fat Wound Edges: Well Defined Site Measurement - Head-to-Toe Length X Width X Depth (cm): 2.5x6.5x6.2 Skin Integrity Problem Comment: Removed extensive packing from wound bed. Wound presents clean without necrosis. Skin prep applied evon wound and proximally toward umbilicus. Drape then applied. One piece of small black granufoam applied to wound bed and a second piece for trac pad placement. Vac started at - 125 mm Hg continuous suction with no leaks. Traci RN's in room for care. Patient tolerated proceedure well. Education on vac use/therapy done with patient and all questions answered. Next vac change Saturday 02/10.
--- NOTE | 2017-02-07 13:03 | HOSPPROG ---
Hospitalist Progress Note Assessment/Plan: 36y male with groin pain. First encounter, chart reviewed. D/W Dr Fowler. #Left groin abscess POD #1 I&D MRSA ID consult cont IV abx per recs #HIV meds continued #Pain better #Schizo/PTSD stable #Social hx on work release program reviewed with CM #Dispo unclear await path cont IV abx Subjective: Feeling better. Less pain today. No specific issues. Objective: Vital Signs Temp Pulse Resp BP Pulse Ox 37.0 C 70 16 114/74 92 02/07/17 11:02 02/07/17 11:02 02/07/17 11:02 02/07/17 11:02 02/07/17 11:02 Laboratory Results 02/07/17 04:24 02/07/17 04:24 02/06/17 02/07/17 02/08/17 05:59 05:59 05:59 Intake Total 1790 1554 Output Total 555 450 Balance 1235 1104 - Physical Exam Constitutional: no apparent distress, appears nourished, not in pain Eyes: PERRL, anicteric sclera, EOMI Ears, Nose, Mouth, Throat: moist mucous membranes, hearing normal, ears appear normal Cardiovascular: regular rate and rhythym, No JVD, No edema Respiratory: no respiratory distress, no rales or rhonchi, reduced air movement Gastrointestinal: normoactive bowel sounds, soft, non-tender abdomen, No ascites Skin: warm, erythema, No mottled Musculoskeletal: full muscle strength, normal joint ROM, no joint effusions Neurologic: AAOx3 Psychiatric: not anxious, not encephalopathic, poor insight, poor judgement ICD10 Worksheet Patient Problems: Problems Problem Status Onset MRSA (methicillin resistant Staphylococcus aureus) Acute ~02/04/17 Alcohol intoxication Acute Alcohol dependence Acute Acute bronchitis Acute
--- NOTE | 2017-02-07 15:03 | PCMIDPN ---
Assessment/Plan: Assessment: Complex MRSA abscess left groin status post incision and drainage. Patient on vancomycin monotherapy. Patient is to continue on his chronic HIV regimen for management. Will monitor clinically over the next 1-2 days for proper time to transition MRSA treatment over to oral Bactrim or oral doxycycline for completion of therapy. Plan: 1. Continue both discovey and tivocay. 2. Continue vancomycin coverage. 02/07/17 15:01 Subjective: Patient is resting in his hospital bed. He complains of postoperative pain in the left groin. He states however the pain is significantly better and different than it was prior to surgery. He denies any fevers or chills. Objective: Vancomycin # 2 Vital Signs Temp Pulse Resp BP Pulse Ox 37.0 C 70 16 114/74 92 02/07/17 11:02 02/07/17 11:02 02/07/17 11:02 02/07/17 11:02 02/07/17 11:02 Laboratory Results 02/07/17 04:24 02/07/17 04:24 02/06/17 02/07/17 02/08/17 05:59 05:59 05:59 Intake Total 1790 1554 Output Total 555 450 Balance 1235 1104 - Physical Exam General Appearance: WD/WN, alert, no apparent distress, non-toxic Respiratory: lungs clear, normal breath sounds, No respiratory distress Cardiac/Chest: regular rate, rhythm, No tachycardia Skin: normal color, warm/dry, No rash Neuro/Psych: alert, normal mood/affect, oriented x 3 ICD10 Worksheet Patient Problems: Problems Problem Status Onset Acute bronchitis Acute Alcohol dependence Acute Alcohol intoxication Acute MRSA (methicillin resistant Staphylococcus aureus) Acute ~02/04/17
--- NOTE | 2017-02-07 15:40 | SOAPPROG ---
SOAP Progress Note Assessment/Plan: Assessment: AFEBRILE/WOUND OKAY/WOUND VAC TO START TODAY/WBC NORMAL ID TO SEE Plan: CHANGE WOUND VAC ON FRIDAY AND RE-EVALUATE FOR RETURN TO THE SHELTER 02/07/17 15:39 Objective: Vital Signs Temp Pulse Resp BP Pulse Ox 37.0 C 70 16 114/74 92 02/07/17 11:02 02/07/17 11:02 02/07/17 11:02 02/07/17 11:02 02/07/17 11:02 Laboratory Results 02/07/17 04:24 02/07/17 04:24 02/06/17 02/07/17 02/08/17 05:59 05:59 05:59 Intake Total 1790 1554 Output Total 101 450 Balance 1235 1104 ICD10 Worksheet Patient Problems: Problems Problem Status Onset Acute bronchitis Acute Alcohol dependence Acute Alcohol intoxication Acute MRSA (methicillin resistant Staphylococcus aureus) Acute ~02/04/17
[2017-02-07] MEDS: VANCOMYCIN HCL/NORMAL SALINE 250 ML IV SCH (20:04)
[2017-02-08] MEDS ORDERED: VANCOMYCIN HCL/NORMAL SALINE 250 ML IV SCH (01:00)
[2017-02-08] MEDS: HYDROCODONE/APAP 5/325 TAB PO PRN ×2 (04:45→13:44)
[2017-02-08] MEDS: VANCOMYCIN HCL/NORMAL SALINE 250 ML IV SCH ×3 (07:00→23:12)
[2017-02-08] MEDS: Emtricitabine/Tenofov Alafenam [Descovy 200-25 Mg Tablet] 1 EACH) PO SCH (07:45)
[2017-02-08] MEDS: Dolutegravir Sodium [Tivicay] 50 MG PO SCH (07:46)
[2017-02-08] MEDS: HYDROmorphONE/DILAUDID 1 MG/ML SYR IVP PRN (07:46)
--- NOTE | 2017-02-08 08:50 | PCMIDPN ---
Assessment/Plan: 1. Left groin abscess with surrounding necrotizing cellulitis secondary to MRSA status post incision and drainage with wound VAC placement: Still has a fair amount of induration/tenderness inferior to the wound VAC, but cellulitic component is much better overall. Continue intravenous vancomycin; levels are okay. 2. Increased creatinine: Repeat today. Baseline creatinine is anywhere from 0.9-1.1. Of note, 1 of the patient's antiretrovirals can decrease tubular secretion of creatinine without affecting overall GFR, but the increase to 1.4 seems higher than it should be. 3. HIV: Continue Descovy and Dolutegravir. Subjective: In good spirits. Minimal pain. Feels itchy. Objective: Vancomycin 1 g IV q.12 hours day 2. T-max 37.3degrees Vital Signs Temp Pulse Resp BP Pulse Ox 37.2 C 73 20 118/83 H 91 L 02/08/17 07:34 02/08/17 07:34 02/08/17 07:34 02/08/17 07:34 02/08/17 07:34 Laboratory Results 02/07/17 04:24 02/07/17 04:24 02/07/17 02/08/17 02/09/17 05:59 05:59 05:59 Intake Total 1790 2354 Output Total 555 3890 800 Balance 4055 -197 -748 Groin abscess: MRSA sensitive to doxycycline and Bactrim, vancomycin ALIYA of 1 - Physical Exam General Appearance: alert, no apparent distress EENT: pharynx normal, No thrush Respiratory: lungs clear Abdomen: non-tender, soft Male Genitalia: other (Left groin notable for half-dollar size wound VAC in place at site of previous abscess. Erythema has almost completely resolved, but the patient has fair amount of induration with discomfort inferior to the wound VAC. Tenderness extends into the scrotal sac on the left side, without swelling or induration of the scrotal sac, per se.) Skin: No rash ICD10 Worksheet Patient Problems: Problems Problem Status Onset Acute bronchitis Acute Alcohol dependence Acute Alcohol intoxication Acute MRSA (methicillin resistant Staphylococcus aureus) Acute ~02/04/17
[2017-02-08 09:43] LABS: % IMMATURE GRANULYOCYTES 0.3 % (0.0-1.1); ABSOLUTE IMMATURE GRANULOCYTES 0.02 10^3/uL (0.00-0.10); ADD DIFF? NO; ADD MORPH? NO; ADD SCAN? NO; ATYPICAL LYMPHOCYTE FLAG 0 (0-99); FRAGMENT RBC FLAG 0 (0-99); HEMATOCRIT 38.5 % (40.0-51.0); HEMOGLOBIN 13.1 g/dL (13.7-17.5); LEFT SHIFT FLG 10 (0-99); LIPEMIA HEMOLYSIS FLAG 90 (0-99); MEAN CELL HEMOGLOBIN 33.8 pg (27.9-34.1); MEAN CELL VOLUME 99.2 fL (81.5-99.8); MEAN PLATELET VOLUME 8.7 fL (8.7-11.7); PLATELET CLUMPS FLAG 0 (0-99); PLATELET COUNT 209 10^3/uL (150-400); RED BLOOD CELL COUNT 3.88 10^6/uL (4.40-6.38); RED CELL DISTRIBUTION WIDTH 12.9 % (11.5-15.2)
--- NOTE | 2017-02-08 09:57 | HOSPPROG ---
Hospitalist Progress Note Assessment/Plan: 36y male with groin pain. First encounter, chart reviewed. D/W Dr Winston. #Left groin abscess, necrotizing cellulitis secondary to MRSA POD #2 I&D MRSA appreciate ID wound vac in place cont IV vanco #HIV meds continued #JEWEL repeat metp #Pain better #Schizo/PTSD stable #Social hx on work release program reviewed with CM #Dispo unclear await path cont IV abx Subjective: Feeling ok. No specific complaints. Objective: Vital Signs Temp Pulse Resp BP Pulse Ox 37.2 C 73 20 118/83 H 91 L 02/08/17 07:34 02/08/17 07:34 02/08/17 07:34 02/08/17 07:34 02/08/17 07:34 Laboratory Results 02/08/17 09:30 02/07/17 02/08/17 02/09/17 05:59 05:59 05:59 Intake Total 1790 2354 Output Total 555 2850 800 Balance 1235 -496 -800 - Physical Exam Constitutional: no apparent distress, not in pain Eyes: PERRL, anicteric sclera Ears, Nose, Mouth, Throat: moist mucous membranes, hearing normal Cardiovascular: regular rate and rhythym, No JVD Respiratory: no respiratory distress, no rales or rhonchi Gastrointestinal: No tenderness, No ascites Skin: warm, erythema, induration Musculoskeletal: full muscle strength, no joint effusions Neurologic: AAOx3 Psychiatric: interacting appropriately, not anxious, not encephalopathic ICD10 Worksheet Patient Problems: Problems Problem Status Onset MRSA (methicillin resistant Staphylococcus aureus) Acute ~02/04/17 Alcohol intoxication Acute Alcohol dependence Acute Acute bronchitis Acute
[2017-02-08 10:03] LABS: ANION GAP 12 mEq/L (8-16); CALCIUM 9.3 mg/dL (8.5-10.4); CARBON DIOXIDE 21 mEq/l (22-31); CHLORIDE 107 mEq/L (97-110); CREATININE 1.2 mg/dL (0.7-1.3); GLOMERULAR FILTRATION RATE > 60; GLUCOSE 96 mg/dL (70-100); SODIUM 140 mEq/L (134-144)
--- NOTE | 2017-02-08 11:00 | SOAPPROG ---
SOAP Progress Note Assessment/Plan: Assessment: 28-year-old male with underlying HIV status post 2 days out from left groin incision and drainage. Back appears to be holding suction appropriately, minimal cellulitis around the area. There is some induration into the medial groin into the scrotum which appears to be resolving. Patient is back on his anti retroviral treatments. Being followed by both Medicine and Infectious Disease, appreciate their assistance. Plan will be to take down VAC Friday Plan: 02/08/17 11:00 Subjective: Doing well, pain controlled. Seems to be more concerned playing [employer] games on his phone than talking with me Objective: Vital Signs Temp Pulse Resp BP Pulse Ox 37.2 C 73 20 118/83 H 91 L 02/08/17 07:34 02/08/17 07:34 02/08/17 07:34 02/08/17 07:34 02/08/17 07:34 Laboratory Results 02/08/17 09:30 02/08/17 09:30 02/07/17 02/08/17 02/09/17 05:59 05:59 05:59 Intake Total 1790 1200 Output Total 555 2850 800 Balance 1235 -496 -800 ICD10 Worksheet Patient Problems: Problems Problem Status Onset Acute bronchitis Acute Alcohol dependence Acute Alcohol intoxication Acute MRSA (methicillin resistant Staphylococcus aureus) Acute ~02/04/17
[2017-02-09] MEDS: HYDROCODONE/APAP 5/325 TAB PO PRN ×3 (07:32→22:32)
[2017-02-09] MEDS: Emtricitabine/Tenofov Alafenam [Descovy 200-25 Mg Tablet] 1 EACH) PO SCH (07:33)
[2017-02-09] MEDS: Dolutegravir Sodium [Tivicay] 50 MG PO SCH (07:33)
--- NOTE | 2017-02-09 09:22 | SOAPPROG ---
SOAP Progress Note Assessment/Plan: Assessment: 28-year-old male with underlying HIV status post 2 days out from left groin incision and drainage. Cellulitis and induration in the medial portion of the groin appears improved both clinically and objectively. VAC appears to be holding suction appropriately with minimal drainage in the canister. Planning changed tomorrow. Plan: 02/08/17 11:00 02/09/17 09:21 Subjective: No complaints pain seems better controlled today Objective: Vital Signs Temp Pulse Resp BP Pulse Ox 36.5 C 77 16 130/83 H 91 L 02/09/17 08:10 02/09/17 08:10 02/09/17 08:10 02/09/17 08:10 02/09/17 08:10 Laboratory Results 02/08/17 09:30 02/08/17 09:30 02/08/17 02/09/17 02/10/17 05:59 05:59 05:59 Intake Total 6264 1999 Output Total 3253 7120 225 Balance -496 -1500 -225 ICD10 Worksheet Patient Problems: Problems Problem Status Onset Acute bronchitis Acute Alcohol dependence Acute Alcohol intoxication Acute MRSA (methicillin resistant Staphylococcus aureus) Acute ~02/04/17
--- NOTE | 2017-02-09 09:27 | HOSPPROG ---
Hospitalist Progress Note Assessment/Plan: 36y male with groin pain. #Left groin abscess, necrotizing cellulitis secondary to MRSA POD #3 I&D MRSA appreciate ID wound vac in place cont IV vanco #HIV meds continued #JEWEL resolved #Pain better #Schizo/PTSD stable #Social hx on work release program reviewed with CM #Dispo unclear await path cont IV abx change wound vac in am Subjective: Feeling fine. No complaints. Objective: Vital Signs Temp Pulse Resp BP Pulse Ox 36.5 C 77 16 130/83 H 91 L 02/09/17 08:10 02/09/17 08:10 02/09/17 08:10 02/09/17 08:10 02/09/17 08:10 Laboratory Results 02/08/17 09:30 02/08/17 09:30 02/08/17 02/09/17 02/10/17 05:59 05:59 05:59 Intake Total 2354 2000 Output Total 2850 3500 225 Balance -496 -1500 -225 - Physical Exam Constitutional: no apparent distress, not in pain Eyes: PERRL, anicteric sclera Ears, Nose, Mouth, Throat: moist mucous membranes, hearing normal, ears appear normal Cardiovascular: regular rate and rhythym, No JVD Respiratory: no respiratory distress, no rales or rhonchi Gastrointestinal: normoactive bowel sounds, No tenderness Skin: warm, erythema Musculoskeletal: full muscle strength, no joint effusions Neurologic: AAOx3 Psychiatric: interacting appropriately, not anxious, not encephalopathic ICD10 Worksheet Patient Problems: Problems Problem Status Onset MRSA (methicillin resistant Staphylococcus aureus) Acute ~02/04/17 Alcohol intoxication Acute Alcohol dependence Acute Acute bronchitis Acute
[2017-02-09] MEDS: VANCOMYCIN HCL/NORMAL SALINE 250 ML IV SCH ×2 (11:12→22:33)
--- NOTE | 2017-02-09 11:54 | PCMIDPN ---
Assessment/Plan: 1. Left groin abscess with surrounding necrotizing cellulitis secondary to MRSA status post incision and drainage with wound VAC placement: Still has a fair amount of induration/tenderness inferior/lateral to the wound VAC, but cellulitic component is much better overall. Continue intravenous vancomycin for now, perhaps 1 more day then transition to doxycycline PO. Recent vancomycin trough was fine. Wound VAC to be changed tomorrow. Hopefully someone from our service can witnessed this change. 2. Increased creatinine: Improved; down to 1.2. 3. HIV: Continue Descovy and Dolutegravir. Subjective: In good spirits. No complaints. Objective: Vancomycin 1 g IV q.12 hours day 3 afebrile Vital Signs Temp Pulse Resp BP Pulse Ox 36.6 C 65 16 111/70 93 02/09/17 11:35 02/09/17 11:35 02/09/17 11:35 02/09/17 11:35 02/09/17 11:35 Laboratory Results 02/08/17 09:30 02/08/17 09:30 02/08/17 02/09/17 02/10/17 05:59 05:59 05:59 Intake Total 2354 1999 Output Total 2850 3500 425 Balance -496 -1500 -425 skin and soft tissue cultures with MRSA - Physical Exam General Appearance: alert, no apparent distress Male Genitalia: other ( wound VAC in place left groin. Surrounding tenderness to palpation / induration inferolaterally, in inguinal area. erythema has completely resolved. Induration is about the same today compared with yesterday.) ICD10 Worksheet Patient Problems: Problems Problem Status Onset Acute bronchitis Acute Alcohol dependence Acute Alcohol intoxication Acute MRSA (methicillin resistant Staphylococcus aureus) Acute ~02/04/17
[2017-02-10] MEDS: HYDROmorphONE/DILAUDID 1 MG/ML SYR IVP PRN (08:04)
[2017-02-10] MEDS: HYDROCODONE/APAP 5/325 TAB PO PRN (08:04)
[2017-02-10] MEDS ORDERED: HYDROmorphONE/DILAUDID 1 MG/ML SYR IVP PRN (08:23)
--- NOTE | 2017-02-10 08:25 | PCMIDPN ---
Assessment/Plan: # MRSA L groin infection: no residual sign of infection. --DC Vancomycin --couple more days doxycycline 100mg PO BID # Mild ARF: dc vancomycin today # HIV, well controlled: CD4 395, VL <1 -- Continue Descovy and Dolutegravir. Subjective: significant pain with wound vac changes Objective: Vital Signs Temp Pulse Resp BP Pulse Ox 36.6 C 58 L 16 102/73 92 02/10/17 04:00 02/10/17 04:00 02/10/17 04:00 02/10/17 04:00 02/10/17 04:00 Laboratory Results 02/08/17 09:30 02/08/17 09:30 02/09/17 02/10/17 02/11/17 05:59 05:59 05:59 Intake Total 2000 1800 Output Total 3500 2775 Balance -1500 -975 - Physical Exam General Appearance: alert, no apparent distress EENT: poor dentition Respiratory: lungs clear, No accessory muscle use Neck: supple Cardiac/Chest: regular rate, rhythm Male Genitalia: other (L groin without erythema or enduration, healthy granulation tissue, no purulence) Skin: No rash Neuro/Psych: alert, normal mood/affect, oriented x 3 - Time Spent With Patient Time Spent with Patient: greater than 25 minutes (care coordinated with hospitalist) Time Spent with Patient: Greater than 25 minutes spent on this patients care, greater than 50% of time spent counseling, educating, and coordinating care regarding the above mentioned plan. ICD10 Worksheet Patient Problems: Problems Problem Status Onset Acute bronchitis Acute Alcohol dependence Acute Alcohol intoxication Acute MRSA (methicillin resistant Staphylococcus aureus) Acute ~02/04/17
[2017-02-10] MEDS: Emtricitabine/Tenofov Alafenam [Descovy 200-25 Mg Tablet] 1 EACH) PO SCH (08:47)
[2017-02-10] MEDS: Dolutegravir Sodium [Tivicay] 50 MG PO SCH (08:47)
--- NOTE | 2017-02-10 08:53 | WOCRNPDOC ---
WOCRN Advanced Assessment Note - Skin Integrity Problem, Advanced Assess Left Groin Dressing Type: Black Vac Foam (x2), Wound Vac Dressing Description: Clean/Dry, Intact Exudate Amount: Moderate Exudate Characteristic(s): Bloody Integumentary Issue Intervention: Dressing Changed, Silver Nitrate Application Teresita Wound Tissue: Painful/Tender (patient experienced a high level of pain with vac change. Needed extensive pain medication.) Teresita Wound Swelling: Moderate Wound Bed Color: Brown (cautery areas), Red, Yellow Wound Bed Constitution: Granulation Tissue (50%), Smooth Tissue (50%), Subcutaneous Fat Site Measurement - Head-to-Toe Length X Width X Depth (cm): 2.5x5.8x4.8 Skin Integrity Problem Comment: Flushed wound with ns and gauze. Teresita wound hair clipped with clippers. Oozing vessel along superior wound edge controlled with silver nitrate and pressure. Clot removed from wound bed. Linn Ag+ placed in wound bed along with x2 pieces of small black simplace foam. Teresita wound skin protected with barrier wipe and drape. This was bridged to left abdomen and vac restarted at - 125 mm Hg continuous suction. Waldemar CABALLERO in room for care. Dr. Mar and Bernice Edgar NP visualized wound beds. Next vac change Wed.
--- NOTE | 2017-02-10 09:23 | HOSPPROG ---
Hospitalist Progress Note Assessment/Plan: 36y male with groin pain. Today is my first encounter w the patient/ chart reviewed/ Discussed his care with Dr Mar. *Left groin abscess w/ necrotizing cellulitis secondary to MRSA POD #[address] I[address] Garcia wound vac in place cont IV vanco *HIV meds continued *JEWEL creat has been elevated will hydrate with one liter of fluids and recheck *constipation bowel protocol *Pain due to the above needed iv diluadid for dressing change *Schizo/PTSD stable *Social hx on work release program Plan: wound vac changed today. add bowel protocol. Objective: Vital Signs Temp Pulse Resp BP Pulse Ox 36.8 C 67 12 126/82 H 90 L 02/10/17 08:00 02/10/17 08:00 02/10/17 08:00 02/10/17 08:00 02/10/17 08:00 Laboratory Results 02/08/17 09:30 02/09/17 02/10/17 02/11/17 05:59 05:59 05:59 Intake Total 2000 1800 Output Total 3500 2775 Balance -1500 -975 - Physical Exam Constitutional: uncomfortable Eyes: PERRL Ears, Nose, Mouth, Throat: hearing normal Cardiovascular: regular rate and rhythym Respiratory: no respiratory distress Gastrointestinal: normoactive bowel sounds Skin: warm, other (left groin with good granulation/ somewhat bloody during the dressing change) Neurologic: AAOx3 Psychiatric: interacting appropriately ICD10 Worksheet Patient Problems: Problems Problem Status Onset Acute bronchitis Acute Alcohol dependence Acute Alcohol intoxication Acute MRSA (methicillin resistant Staphylococcus aureus) Acute ~02/04/17
[2017-02-10 11:08] LABS: ANION GAP 15 mEq/L (8-16); CALCIUM 9.9 mg/dL (8.5-10.4); CARBON DIOXIDE 24 mEq/l (22-31); CHLORIDE 102 mEq/L (97-110); CREATININE 1.4 mg/dL (0.7-1.3); GLOMERULAR FILTRATION RATE 57; GLUCOSE 104 mg/dL (70-100); POTASSIUM 5.8 mEq/L (3.5-5.2); SODIUM 141 mEq/L (134-144)
[2017-02-10] MEDS: VANCOMYCIN HCL/NORMAL SALINE 250 ML IV SCH (11:28)
[2017-02-10 13:48] LABS: ALBUMIN 4.1 g/dL (3.5-5.0)
[2017-02-10] MEDS ORDERED: BISACODYL 10 MG SUPP PR PRN (15:01)
[2017-02-10] MEDS ORDERED: LACTULOSE 20 GM/30 ML UDCUP PO PRN (15:01)
[2017-02-10] MEDS ORDERED: NS 1,000 ML IV SCH (15:15)
[2017-02-10] MEDS: POLYETHYLENE GLYCOL 3350 17 GM PKT PO SCH (15:23)
[2017-02-10] MEDS: SENNOSIDES/DOCUSATE SODIUM TAB PO SCH (20:32)
[2017-02-10] MEDS: DOXYCYCLINE HYCLATE 100 MG CAP/TAB PO SCH (20:32)
--- NOTE | 2017-02-11 09:02 | HOSPPROG ---
Hospitalist Progress Note Assessment/Plan: 36y male with groin pain. Reviewed his care with Dr Mcrae. *Left groin abscess w/ necrotizing cellulitis secondary to MRSA POD #[address] I[address] Garcia wound vac in place Vanco dc/ now on doxycycline *back pain/ per patient has scoliosis will get an xray *HIV meds continued *JEWEL creat has been elevated will hydrate with one liter of fluids and recheck today *hyperkalemia: recheck now *constipation bowel protocol *Pain due to the above needed iv diluadid for dressing change *Schizo/PTSD stable *Social hx on work release program Plan: dc tomorrow w wound vac. Subjective: Rajesh is c/o low back pain. Said this has been ongoing for years. Objective: Vital Signs Temp Pulse Resp BP Pulse Ox 36.6 C 70 16 131/81 H 95 02/11/17 07:14 02/11/17 07:14 02/11/17 07:14 02/11/17 07:14 02/11/17 07:14 Laboratory Results 02/08/17 09:30 02/10/17 09:00 02/10/17 02/11/17 02/12/17 05:59 05:59 05:59 Intake Total 1800 1675 Output Total 2775 2375 Balance -975 -700 - Physical Exam Constitutional: no apparent distress, appears nourished Eyes: PERRL Ears, Nose, Mouth, Throat: hearing normal Cardiovascular: regular rate and rhythym Respiratory: no respiratory distress Gastrointestinal: normoactive bowel sounds Skin: warm, other (wound vac to right groin) Neurologic: AAOx3 Psychiatric: interacting appropriately, not anxious ICD10 Worksheet Patient Problems: Problems Problem Status Onset Acute bronchitis Acute Alcohol dependence Acute Alcohol intoxication Acute MRSA (methicillin resistant Staphylococcus aureus) Acute ~02/04/17
[2017-02-11] MEDS: Emtricitabine/Tenofov Alafenam [Descovy 200-25 Mg Tablet] 1 EACH) PO SCH (09:29)
[2017-02-11] MEDS: SENNOSIDES/DOCUSATE SODIUM TAB PO SCH ×2 (09:29→20:10)
[2017-02-11] MEDS ORDERED: METHOCARBAMOL 750 MG TAB PO PRN (09:29)
[2017-02-11] MEDS: HYDROCODONE/APAP 5/325 TAB PO PRN (09:29)
[2017-02-11] MEDS: DOXYCYCLINE HYCLATE 100 MG CAP/TAB PO SCH ×2 (09:29→20:10)
[2017-02-11] MEDS: Dolutegravir Sodium [Tivicay] 50 MG PO SCH (09:30)
[2017-02-11] MEDS: POLYETHYLENE GLYCOL 3350 17 GM PKT PO SCH (09:32)
[2017-02-11 10:28] LABS: ANION GAP 13 mEq/L (8-16); CARBON DIOXIDE 19 mEq/l (22-31); CHLORIDE 107 mEq/L (97-110); CREATININE 1.3 mg/dL (0.7-1.3); GLOMERULAR FILTRATION RATE > 60; GLUCOSE 131 mg/dL (70-100); POTASSIUM 4.6 mEq/L (3.5-5.2); SODIUM 139 mEq/L (134-144)
--- NOTE | 2017-02-11 12:25 | PCMIDPN ---
Assessment/Plan: Assessment/Plan: 1. Left groin necrotizing infection with cellulitis and abscess secondary to MRSA: s/p I & D - Now with wound vac. - Previously on Vanco, now on doxycycline. -Continue with wound care management. -Cellulitis has resolved -Continue with radha matias short course. 2. HIV - on meds Meds doxy 100mg bbid Objective: Vital Signs Temp Pulse Resp BP Pulse Ox 36.7 C 71 18 111/61 92 02/11/17 10:59 02/11/17 10:59 02/11/17 10:59 02/11/17 10:59 02/11/17 10:59 Laboratory Results 02/08/17 09:30 02/11/17 10:00 02/10/17 02/11/17 02/12/17 05:59 05:59 05:59 Intake Total 1800 1675 Output Total 2775 1625 200 Balance -975 -700 -200 - Physical Exam General Appearance: alert, no apparent distress Respiratory: lungs clear Cardiac/Chest: regular rate, rhythm Extremities: No swelling Abdomen: normal bowel sounds, non-tender, soft, No distended Skin: other (wound vac noted left groin region with some mild tenderness to palpation) ICD10 Worksheet Patient Problems: Problems Problem Status Onset Acute bronchitis Acute Alcohol dependence Acute Alcohol intoxication Acute MRSA (methicillin resistant Staphylococcus aureus) Acute ~02/04/17
--- NOTE | 2017-02-11 15:32 | SOAPPROG ---
SOAP Progress Note Assessment/Plan: Assessment/Plan: 36 Y M HIV s/p OR I&D of groin abscess, MRSA. Wound vac change tomorrow then likely d/c to nursing home. Appreciate medicine and ID input and care. vac in place, good suction, no surrounding erythema or induration. 02/11/17 15:27 Objective: Vital Signs Temp Pulse Resp BP Pulse Ox 36.7 C 71 18 111/61 92 02/11/17 10:59 02/11/17 10:59 02/11/17 10:59 02/11/17 10:59 02/11/17 10:59 Laboratory Results 02/08/17 09:30 02/11/17 10:00 02/10/17 02/11/17 02/12/17 05:59 05:59 05:59 Intake Total 1800 2951 540 Output Total 1025 2375 825 [facility] -975 -700 -285 ICD10 Worksheet Patient Problems: Problems Problem Status Onset Acute bronchitis Acute Alcohol dependence Acute Alcohol intoxication Acute MRSA (methicillin resistant Staphylococcus aureus) Acute ~02/04/17
[2017-02-12 06:24] LABS: ANION GAP 13 mEq/L (8-16); CALCIUM 9.7 mg/dL (8.5-10.4); CARBON DIOXIDE 22 mEq/l (22-31); CHLORIDE 105 mEq/L (97-110); CREATININE 1.4 mg/dL (0.7-1.3); GLOMERULAR FILTRATION RATE 57; GLUCOSE 147 mg/dL (70-100); POTASSIUM 4.8 mEq/L (3.5-5.2); SODIUM 140 mEq/L (134-144)
[2017-02-12] MEDS: traMADol 50 MG TAB PO PRN (09:23)
[2017-02-12] MEDS: SENNOSIDES/DOCUSATE SODIUM TAB PO SCH (09:23)
[2017-02-12] MEDS: HYDROCODONE/APAP 5/325 TAB PO PRN (09:24)
[2017-02-12] MEDS: Dolutegravir Sodium [Tivicay] 50 MG PO SCH (09:24)
[2017-02-12] MEDS: Emtricitabine/Tenofov Alafenam [Descovy 200-25 Mg Tablet] 1 EACH) PO SCH (09:24)
[2017-02-12] MEDS: DOXYCYCLINE HYCLATE 100 MG CAP/TAB PO SCH (09:24)
[2017-02-12] MEDS: POLYETHYLENE GLYCOL 3350 17 GM PKT PO SCH (09:25)
[2017-02-12] MEDS ORDERED: LIDOCAINE HCL 4% TOPICAL SOLN 50ML MM ONE (09:32)
--- NOTE | 2017-02-12 09:42 | HOSPPROG ---
Hospitalist Progress Note Assessment/Plan: 36y male with groin pain. Reviewed his care with Dr Mcrae. *Left groin abscess w/ necrotizing cellulitis secondary to MRSA POD #[address] Garcia wound vac in place Vanco dc/ now on doxycycline *back pain/ per patient has scoliosis xray shows nothing acute *HIV meds continued *JEWEL creat has been elevated probably new baseline/ will need to be monitored *hyperkalemia: resolved *constipation bowel protocol *Pain due to the above prn tramadol *Schizo/PTSD stable *Social hx on work release program Plan: dc w wound vac per surgical team/ recommending he get his kidney function checked in 2 weeks Subjective: Rajesh c/o ongoing back pain. Objective: Vital Signs Temp Pulse Resp BP Pulse Ox 36.6 C 72 18 115/97 H 95 02/12/17 07:48 02/12/17 07:48 02/12/17 07:48 02/12/17 07:48 02/12/17 07:48 Laboratory Results 02/08/17 09:30 02/12/17 04:37 02/11/17 02/12/17 02/13/17 05:59 05:59 05:59 Intake Total 1675 640 Output Total 2375 1775 400 Balance -427 -2265 -400 - Physical Exam Constitutional: uncomfortable Eyes: PERRL Ears, Nose, Mouth, Throat: hearing normal Cardiovascular: regular rate and rhythym Respiratory: no respiratory distress Gastrointestinal: normoactive bowel sounds Skin: warm, other (left groin w wound vac in place) Musculoskeletal: muscular tenderness (low back ) Neurologic: AAOx3 Psychiatric: interacting appropriately ICD10 Worksheet Patient Problems: Problems Problem Status Onset Acute bronchitis Acute Alcohol dependence Acute Alcohol intoxication Acute MRSA (methicillin resistant Staphylococcus aureus) Acute ~02/04/17
--- NOTE | 2017-02-12 10:56 | WOCRNPDOC ---
WOCRN Advanced Assessment Note - Skin Integrity Problem, Advanced Assess Left Groin Dressing Type: Black Vac Foam (x2), Wound Vac Dressing Description: Clean/Dry, Intact Integumentary Issue Intervention: Dressing Changed Evon Wound Swelling: Moderate Wound Bed Color: Red Wound Bed Constitution: Granulation Tissue (80%), Subcutaneous Fat (20%) Skin Integrity Problem Comment: Wound cleansed with ns after application of 8 ml of 4% liquid lidocaine in wound bed. Patient tolerated proceedure much better than previous change. Would recommend using lidocaine for each vac change. Skin prep and drape applied evon wound. One piece of small simplace black foam to wound bed that was bridged to left abdomen. Vac restarted at -125 mm Hg continuous suction without leaks. Rey students in room for change. Dr Garcia visualized wound bed.
[2017-02-12 14:29] VITALS: BP 119/72; PULSE 80; RESP 18; TEMP 98.4; O2SAT 93
--- NOTE | 2017-02-12 16:08 | PCMIDPN ---
Assessment/Plan: Assessment: Complex MRSA abscess left groin status post incision and drainage. Patient on doxycycline orally. Generally doing well with wound VAC at the local area. Pain control continues to be somewhat of an issue. Patient remains afebrile. Plan is to have him discharged with a wound VAC and follow up as an outpatient. He is to continue doxycycline. Plan: 1. Continue both discovey and tivocay. 2. Continue oral doxycycline coverage. Will follow up in office in approximately 1 week time.. Subjective: Patient is resting comfortably in his hospital bed. He has wound VAC attached his left groin. Complains of pain issues in the area otherwise doing okay. No fevers or chills. Tolerating doxycycline without issue. Objective: Doxycycline #2 Vital Signs Temp Pulse Resp BP Pulse Ox 36.9 C 80 18 119/72 93 02/12/17 14:29 02/12/17 14:29 02/12/17 14:29 02/12/17 14:29 02/12/17 14:29 Laboratory Results 02/08/17 09:30 02/12/17 04:37 02/11/17 02/12/17 02/13/17 05:59 05:59 05:59 Intake Total 1675 640 Output Total 8015 1775 400 Balance -027 -6488 -387 - Physical Exam General Appearance: WD/WN, alert, no apparent distress, non-toxic Respiratory: lungs clear, normal breath sounds, No respiratory distress Extremities: non-tender, normal inspection Skin: normal color, warm/dry, other (Wound VAC left inguinal area. No evon wound erythema.), No rash Neuro/Psych: alert, normal mood/affect, oriented x 3 ICD10 Worksheet Patient Problems: Problems Problem Status Onset Acute bronchitis Acute Alcohol dependence Acute Alcohol intoxication Acute MRSA (methicillin resistant Staphylococcus aureus) Acute ~02/04/17
== END 2017-02-12 17:00 | DRG 603 ==
LOC: F3E 10:07 → OBSVTOIN 10:07 → F3E 15:16
PROVIDERS: ADMIT Surgery; ATTEND Surgery
PROC: 3E03029 Introduction of Other Anti-infective into Peripheral Vein, Open Approach (ICD-10-PCS; 2017-02-06)
PROC: 0JBC0ZX Excision of Pelvic Region Subcutaneous Tissue and Fascia, Open Approach, Diagnostic (ICD-10-PCS; principal; 2017-02-06 12:00)
DX: L02.214 Cutaneous abscess of groin (principal); B95.62 Methicillin resistant Staphylococcus aureus infection as the cause of diseases classified elsewhere; N17.9 Acute kidney failure, unspecified; E87.5 Hyperkalemia; K59.00 Constipation, unspecified; M54.5 Low back pain; F25.9 Schizoaffective disorder, unspecified; F43.10 Post-traumatic stress disorder, unspecified; F31.9 Bipolar disorder, unspecified; F41.9 Anxiety disorder, unspecified; F10.21 Alcohol dependence, in remission; Z21 Asymptomatic human immunodeficiency virus [HIV] infection status; Z87.891 Personal history of nicotine dependence; Z59.0 Homelessness
CPT/HCPCS: J1170; J2250; J2405; J2704; J3010; J3370

== ENCOUNTER 2017-04-02 22:03 | Emergency (ER) | payer MEDICAID ==
--- NOTE | 2017-04-02 22:12 | EDPHY ---
H & P Time Seen by Provider: 04/02/17 22:09 HPI/ROS: Chief Complaint: Alcohol intoxication HPI: 36-year-old male who was found on the [address] in [place] of [employer]. Patient passed out after drinking alcohol. Is unable to ambulate on their own. Patient brought in by EMS for further evaluation. No obvious signs of trauma per EMS. Patient states he is HIV positive, viral load is undetectable. Is compliant with medications. ROS: 10 point Review of Systems is negative except as noted in the HPI. PMH: HIV Medications: Antivirals Allergies: Unknown Social History: Positive for alcohol, homeless Family History: non-contributory Physical Exam: Gen: Somnolent, responds to painful stimuli, maintaining airway, smells of alcohol and emesis HEENT: Atraumatic Nose: no epistaxis or deformity Eyes: PERRLA, EOMI Mouth: Moist mucosa Neck: Supple, no step-offs or deformity Chest: Atraumatic, lungs clear to auscultation Heart: S1, S2 normal, no murmur Abd: Soft, non-tender, no guarding Back: Atraumatic Ext: no edema, atraumatic, patient has a small ulcerative lesion in his left inguinal region along and hold incision. No purulent discharge. No erythema. Is nontender Skin: no rash Neuro: Sensation grossly intact, Strength 5/5 in bilateral upper and lower extremities - Medical/Surgical History Hx Asthma: No Hx Chronic Respiratory Disease: No Hx Diabetes: No Hx Cardiac Disease: No Hx Renal Disease: No Hx Cirrhosis: Yes Hx Alcoholism: Yes Hx HIV/AIDS: Yes Hx Splenectomy or Spleen Trauma: No Other PMH: HIV +, SCHIZOPHRENIA, DEPRESSION, ANXIETY, PTSD,GOUT, ARTHRITIS R/T COMPRESSION OF LEFT LEG/CONVEYOR BELT - Social History Smoking Status: Former smoker Constitutional: Initial Vital Signs Temperature (C) 36.8 C 04/02/17 22:09 Heart Rate 118 H 04/02/17 22:09 Respiratory Rate 18 04/02/17 22:09 Blood Pressure 140/98 H 04/02/17 22:09 O2 Sat (%) 94 04/02/17 22:09 O2 Delivery Mode Room Air Allergies/Adverse Reactions: No Known Allergies Allergy (Verified 02/04/17 08:17) Home Medications: Medication Instructions Recorded Dolutegravir Sodium [Tivicay] 50 mg PO DAILY 08/22/16 Emtricitabine/Tenofov Alafenam 1 each PO DAILY 02/06/17 [Descovy 200-25 mg Tablet] traMADol [Ultram 50 mg (*)] 50 - 100 mg PO Q4H PRN #0 tab 02/12/17 Medical Decision Making ED Course/Re-evaluation: Patient is now awake and appropriate. Ambulating unassisted to the bathroom. No current complaints. Medically cleared for the [facility] - Data Points Medications Given: Discontinued Medications Chlordiazepoxide (Librium 25 Mg Prepack#6) 1 btl TAKEHOME EDNOW ONE Stop: 04/03/17 02:35 Last Admin: 04/03/17 02:52 Dose: 1 btl Departure - Departure Disposition: Home, Routine, Self-Care Clinical Impression: Alcohol intoxication Condition: Good Instructions: Chlordiazepoxide/Clidinium (By mouth), Alcohol Intoxication (ED) Additional Instructions: Please seek help to decrease your alcohol consumption. Follow-up at the [facility] as needed. Referrals: [facility],. [Clinic] - As per Instructions
[2017-04-03] MEDS ORDERED: CHLORDIAZEPOXIDE 25MG PREPK#6 BTL TAKEHOME ONE ×2 (02:34→02:35)
[2017-04-03 03:08] VITALS: BP 131/76; PULSE 84; RESP 16; TEMP 97.9; O2SAT 92
== END 2017-04-03 03:08 | disposition home or self-care (01) ==
LOC: EDUNIT#
DX: F10.129 Alcohol abuse with intoxication, unspecified (principal); B20 Human immunodeficiency virus [HIV] disease; Z87.891 Personal history of nicotine dependence

== ENCOUNTER → 2017-05-08 | Outpatient (CLI) | payer MEDICAID | LOC: FIMAGING 09:57 | PROVIDERS: ATTEND Nurse Practitioner | DX: M25.511 Pain in right shoulder (principal); B20 Human immunodeficiency virus [HIV] disease ==

== ENCOUNTER → 2017-06-04 | Outpatient (CLI) | payer MEDICAID ==
--- NOTE | 2017-06-04 13:40 | CPEKG ---
Heart Rate: 63 RR Interval: 952 P-R Interval: 172 QRSD Interval: 86 QT Interval: 392 QTC Interval: 402 P Walker: 53 QRS Walker: 66 T Wave Walker: 55 EKG Severity - ABNORMAL ECG - EKG Impression: SINUS RHYTHM EKG Impression: CONSIDER LEFT VENTRICULAR HYPERTROPHY Electronically Signed By: Alphonse Pacheco 05-Jun-2017 18:36:55
== END ==
LOC: FCP 13:22
PROVIDERS: ATTEND Nurse Practitioner
DX: R94.31 Abnormal electrocardiogram [ECG] [EKG] (principal); R07.9 Chest pain, unspecified; B20 Human immunodeficiency virus [HIV] disease; R85.610 Atypical squamous cells of undetermined significance on cytologic smear of anus (ASC-US); R74.8 Abnormal levels of other serum enzymes; M79.641 Pain in right hand; M79.642 Pain in left hand; M54.2 Cervicalgia; M25.511 Pain in right shoulder; Z78.9 Other specified health status

== ENCOUNTER 2017-06-11 09:04 | Emergency (ER) | payer MEDICAID ==
--- NOTE | 2017-06-11 09:06 | EDPHY ---
H & P Smoking Status: Former smoker Time Seen by Provider: 06/11/17 09:05 HPI/ROS: CHIEF COMPLAINT: Altered mental status HISTORY OF PRESENT ILLNESS: Found sleeping outside 7-11, glucose 116. Per records the patient has history of alcoholism and HIV. On arrival the patient is nonverbal, review of systems and further history unobtainable. Of note EMS did not see anything on scene suggestive of trauma. PAST MEDICAL HISTORY: Alcohol an HIV previous records Social history: Nonverbal on arrival, unable. 111/73, 63, 94% RA, rr 15 hypothermic General Appearance: Patient is sleeping but will grimace to sternal rub only. Eyes: No scleral icterus. Pupils reactive to light. ENT, Mouth: Normal mucous membranes. No tongue laceration or abrasion. No external evidence of head trauma. Respiratory: Normal respiratory effort, breath sounds equal, lungs are clear to auscultation. Cardiovascular: Regular rate and rhythm. Gastrointestinal: Abdomen is soft and non tender. Neurological: Awakens to sternal rub but does not speak. Spontaneous movement of all 4 extremities. Legs crossed on the gurney. Skin: Warm and dry, no rashes. Musculoskeletal: No peripheral edema and no joint swelling. Psychiatric: Unable on arrival, nonverbal. Emergency Department course/MDM: Plan for labs to include chemistry and alcohol. Serial exam. Passive rewarming with Ann Hugger. Temperature 36.7degrees at 1:08 p.m. More alert but still too sleepy to walk at 3:30 p.m., signed out to Dwayne at this time with plan to discharge to detox when clinically sober. (Jordy Rios) Constitutional: Initial Vital Signs Temperature (C) 34.2 C L 06/11/17 09:10 O2 Delivery Mode Room Air Allergies/Adverse Reactions: No Known Allergies Allergy (Verified 02/04/17 08:17) Home Medications: Medication Instructions Recorded Dolutegravir Sodium [Tivicay] 50 mg PO DAILY 08/22/16 Emtricitabine/Tenofov Alafenam 1 each PO DAILY 02/06/17 [Descovy 200-25 mg Tablet] traMADol [Ultram 50 mg (*)] 50 - 100 mg PO Q4H PRN #0 tab 02/12/17 Medical Decision Making Differential Diagnosis: Differential diagnosis considered for altered mental status including but not limited to hypoglycemia, infectious process, electrolyte abnormality, head injury and intoxicants. (Jordy Rios) Critical Care Time: Critical care time spent by me, Dr. Rois, exclusively with the care of this patient was 20 minutes, exclusive of PA or PHARMACEUTICAL SERVICE REPRESENTATIVE time and exclusive of separate procedures. The organ system at risk was environmental, hypothermia and I ordered external rewarming and serial examinations, monitoring; to stabilize the patient and prevent worsening of the patient's condition. (Jordy Rios) Other Provider: 4:15 p.m. the patient is ambulating. We will transfer to the [facility] with Librium prepack. (Chaz Rice) - Data Points Laboratory Results: Laboratory Results 06/11/17 09:05 06/11/17 09:05 06/11/17 06/11/17 09:05 09:05 WBC 6.60 10^3/uL 10^3/uL (3.80-9.50) RBC 4.63 10^6/uL 10^6/uL (4.40-6.38) Hgb 15.3 g/dL g/dL (13.7-17.5) Hct 45.2 % % (40.0-51.0) MCV 97.6 fL fL (81.5-99.8) MCH 33.0 pg pg (27.9-34.1) MCHC 33.8 g/dL g/dL (32.4-36.7) RDW 14.1 % % (11.5-15.2) Plt Count 184 10^3/uL 10^3/uL (150-400) MPV 8.6 fL L fL (8.7-11.7) Neut % (Auto) 51.0 % % (39.3-74.2) Lymph % (Auto) 41.8 % % (15.0-45.0) [place] % (Auto) 5.0 % % (4.5-13.0) Eos % (Auto) 1.4 % % (0.6-7.6) Baso % (Auto) 0.3 % % (0.3-1.7) Nucleat RBC Rel Count 0.0 % % (0.0-0.2) Absolute Neuts (auto) 3.37 10^3/uL 10^3/uL (1.70-6.50) Absolute Lymphs (auto) 2.76 10^3/uL 10^3/uL (1.00-3.00) Absolute Monos (auto) 0.33 10^3/uL 10^3/uL (0.30-0.80) Absolute Eos (auto) 0.09 10^3/uL 10^3/uL (0.03-0.40) Absolute Basos (auto) 0.02 10^3/uL 10^3/uL (0.02-0.10) Absolute Nucleated RBC 0.00 10^3/uL 10^3/uL (0-0.01) Immature Gran % 0.5 % % (0.0-1.1) Immature Gran # 0.03 10^3/uL 10^3/uL (0.00-0.10) Sodium 157 mEq/L H mEq/L (134-144) Potassium 4.5 mEq/L mEq/L (3.5-5.2) Chloride 116 mEq/L H mEq/L (97-110) Carbon Dioxide 24 mEq/l mEq/l (22-31) Anion Gap 17 mEq/L H mEq/L (8-16) BUN 16 mg/dL mg/dL (7-23) Creatinine 1.1 mg/dL mg/dL (0.7-1.3) Estimated GFR > 60 Glucose 94 mg/dL mg/dL (70-100) Calcium 8.6 mg/dL mg/dL (8.5-10.4) Ethyl Alcohol 449 mg/dL H* mg/dL (0-10) Medications Given: Discontinued Medications Chlordiazepoxide (Librium 25 Mg Prepack#6) 1 btl [employer] ONE Stop: 06/11/17 16:12 Last Admin: 06/11/17 16:13 Dose: Not Given Sodium Chloride (Ns) 1,000 mls @ 0 mls/hr IV ONCE ONE PRN Reason: Wide Open Stop: 06/11/17 09:21 Last Admin: 06/11/17 09:33 Dose: 1,000 mls Departure - Departure Disposition: Home, Routine, Self-Care Clinical Impression: Alcohol intoxication Qualifiers: Complication of substance-induced condition: uncomplicated Qualified Code(s): F10.920 - Alcohol use, unspecified with intoxication, uncomplicated Hypothermia Qualifiers: Encounter type: initial encounter Qualified Code(s): T68.XXXA - Hypothermia, initial encounter Condition: Good Instructions: Chlordiazepoxide (By mouth), Alcohol Intoxication (ED) Referrals: Meliza Zhong NP [Primary Care Provider] - As per Instructions
[2017-06-11] MEDS ORDERED: NS 1,000 ML IV ONE (09:20)
[2017-06-11 09:22] LABS: % IMMATURE GRANULYOCYTES 0.5 % (0.0-1.1); ABSOLUTE IMMATURE GRANULOCYTES 0.03 10^3/uL (0.00-0.10); ADD DIFF? NO; ADD MORPH? NO; ADD SCAN? NO; ATYPICAL LYMPHOCYTE FLAG 10 (0-99); FRAGMENT RBC FLAG 0 (0-99); HEMATOCRIT 45.2 % (40.0-51.0); HEMOGLOBIN 15.3 g/dL (13.7-17.5); LEFT SHIFT FLG 0 (0-99); LIPEMIA HEMOLYSIS FLAG 90 (0-99); MEAN CELL HEMOGLOBIN CONCENTR. 33.8 g/dL (32.4-36.7); MEAN CELL VOLUME 97.6 fL (81.5-99.8); MEAN PLATELET VOLUME 8.6 fL (8.7-11.7); PLATELET CLUMPS FLAG 0 (0-99); PLATELET COUNT 184 10^3/uL (150-400); RED BLOOD CELL COUNT 4.63 10^6/uL (4.40-6.38); RED CELL DISTRIBUTION WIDTH 14.1 % (11.5-15.2)
--- NOTE | 2017-06-11 09:29 | ASMTCMCOM ---
CM Note CM Note Notes: Patient is followed at [facility] by Meliza Zhong NP. Meliza contacted and informed of patients arrival to the ER and anticipated discharge to the [facility] Date Signed: 06/11/2017 09:28 AM Electronically Signed By:Yahaira Gonzalez RN
[2017-06-11 09:35] LABS: ANION GAP 17 mEq/L (8-16); CALCIUM 8.6 mg/dL (8.5-10.4); CARBON DIOXIDE 24 mEq/l (22-31); CHLORIDE 116 mEq/L (97-110); CREATININE 1.1 mg/dL (0.7-1.3); GLOMERULAR FILTRATION RATE > 60; GLUCOSE 94 mg/dL (70-100); POTASSIUM 4.5 mEq/L (3.5-5.2); SODIUM 157 mEq/L (134-144)
[2017-06-11 09:54] LABS: ETHANOL SERUM 449 mg/dL (0-10)
[2017-06-11 15:47] VITALS: BP 107/63; PULSE 95; RESP 14; TEMP 97.9; O2SAT 94
[2017-06-11] MEDS ORDERED: AMMONIA AROMATIC 1 EACH AMP IH ONE (16:06)
[2017-06-11] MEDS ORDERED: CHLORDIAZEPOXIDE 25MG PREPK#6 BTL TAKEHOME ONE (16:11)
== END 2017-06-11 16:36 | disposition home or self-care (01) ==
LOC: EDUNIT#
DX: T68.XXXA Hypothermia, initial encounter (principal); F10.920 Alcohol use, unspecified with intoxication, uncomplicated; Z87.891 Personal history of nicotine dependence; X31.XXXA Exposure to excessive natural cold, initial encounter
CPT/HCPCS: G0480

== ENCOUNTER 2017-06-18 10:12 | Emergency (ER) | payer MEDICAID ==
[2017-06-18 10:24] VITALS: RESP 16
[2017-06-18] MEDS ORDERED: LORazepam 2 MG/ML INJ ONE (10:46)
[2017-06-18] MEDS ORDERED: LORazepam 1 MG TAB ONE (10:51)
[2017-06-18] MEDS ORDERED: LORazepam 1 MG TAB PO ONE (11:16)
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
[2017-06-18 11:25] LABS: % IMMATURE GRANULYOCYTES 0.3 % (0.0-1.1); ABSOLUTE IMMATURE GRANULOCYTES 0.02 10^3/uL (0.00-0.10); ADD DIFF? NO; ADD MORPH? NO; ADD SCAN? NO; ATYPICAL LYMPHOCYTE FLAG 10 (0-99); FRAGMENT RBC FLAG 0 (0-99); HEMATOCRIT 42.4 % (40.0-51.0); HEMOGLOBIN 14.9 g/dL (13.7-17.5); LEFT SHIFT FLG 0 (0-99); LIPEMIA HEMOLYSIS FLAG 90 (0-99); MEAN CELL HEMOGLOBIN 34.4 pg (27.9-34.1); MEAN CELL HEMOGLOBIN CONCENTR. 35.1 g/dL (32.4-36.7); MEAN CELL VOLUME 97.9 fL (81.5-99.8); MEAN PLATELET VOLUME 8.9 fL (8.7-11.7); PLATELET CLUMPS FLAG 10 (0-99); PLATELET COUNT 184 10^3/uL (150-400); RED BLOOD CELL COUNT 4.33 10^6/uL (4.40-6.38); RED CELL DISTRIBUTION WIDTH 14.1 % (11.5-15.2)
[2017-06-18 11:29] LABS: ANION GAP 17 mEq/L (8-16); CALCIUM 9.5 mg/dL (8.5-10.4); CARBON DIOXIDE 23 mEq/l (22-31); CHLORIDE 110 mEq/L (97-110); GLOMERULAR FILTRATION RATE > 60; GLUCOSE 111 mg/dL (70-100); POTASSIUM 3.7 mEq/L (3.5-5.2); SODIUM 150 mEq/L (134-144)
[2017-06-18 11:52] LABS: ETHANOL SERUM 494 mg/dL (0-10)
[2017-06-18 16:15] VITALS: O2SAT 96
[2017-06-18 16:16] VITALS: BP 100/75; PULSE 99; TEMP 98.2
[2017-06-18] MEDS ORDERED: CHLORDIAZEPOXIDE 25MG PREPK#6 BTL TAKEHOME ONE (16:27)
== END 2017-06-18 17:07 ==
LOC: EDUNIT#
DX: F10.920 Alcohol use, unspecified with intoxication, uncomplicated (principal); Z87.891 Personal history of nicotine dependence
CPT/HCPCS: G0480; J2060

== ENCOUNTER 2017-06-22 21:17 | Emergency (ER) | payer MEDICAID ==
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
[2017-06-23] VITALS: RESP 16; O2SAT 97
[2017-06-23 02:24] VITALS: BP 126/73; PULSE 80; TEMP 98.1
== END 2017-06-23 02:25 | disposition home or self-care (01) ==
LOC: EDUNIT#
DX: S00.81XA Abrasion of other part of head, initial encounter (principal); F10.920 Alcohol use, unspecified with intoxication, uncomplicated; B20 Human immunodeficiency virus [HIV] disease; Z87.891 Personal history of nicotine dependence; Y08.89XA Assault by other specified means, initial encounter

== ENCOUNTER 2017-06-23 12:11 | Emergency (ER) | payer MEDICAID ==
[2017-06-23 12:17] VITALS: BP 112/82; PULSE 75; RESP 16; TEMP 98.2; O2SAT 96
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
== END 2017-06-23 17:46 | disposition home or self-care (01) ==
LOC: EDUNIT#
DX: F10.929 Alcohol use, unspecified with intoxication, unspecified (principal); Z87.891 Personal history of nicotine dependence

== ENCOUNTER 2017-06-29 00:21 | Emergency (ER) | payer MEDICAID ==
[~2017-06-29 00:21] MED LIST changes: +AZITHROMYCIN 250 MG TAB PO SCH; -OSELTAMIVIR PHOSPHATE 75 MG CAP PO SCH; +predniSONE 20 MG TAB PO SCH
[2017-06-29] MEDS ORDERED: ALBUTEROL 3 ML DEYVIAL IH ONE (00:36)
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
[2017-06-29] MEDS ORDERED: ALBUTEROL 3 ML DEYVIAL ONE (00:46)
[2017-06-29 00:51] LABS: ANION GAP 13 mEq/L (8-16); CALCIUM 8.9 mg/dL (8.5-10.4); CARBON DIOXIDE 27 mEq/l (22-31); CHLORIDE 107 mEq/L (97-110); CREATININE 1.1 mg/dL (0.7-1.3); GLOMERULAR FILTRATION RATE > 60; GLUCOSE 118 mg/dL (70-100); POTASSIUM 3.5 mEq/L (3.5-5.2); SODIUM 147 mEq/L (134-144)
[2017-06-29 01:03] LABS: % IMMATURE GRANULYOCYTES 0.3 % (0.0-1.1); ABSOLUTE IMMATURE GRANULOCYTES 0.02 10^3/uL (0.00-0.10); ADD DIFF? NO; ADD MORPH? NO; ADD SCAN? NO; ATYPICAL LYMPHOCYTE FLAG 10 (0-99); FRAGMENT RBC FLAG 0 (0-99); HEMATOCRIT 38.3 % (40.0-51.0); HEMOGLOBIN 13.8 g/dL (13.7-17.5); LEFT SHIFT FLG 0 (0-99); LIPEMIA HEMOLYSIS FLAG 90 (0-99); MEAN CELL HEMOGLOBIN 34.8 pg (27.9-34.1); MEAN CELL VOLUME 96.7 fL (81.5-99.8); MEAN PLATELET VOLUME 9.2 fL (8.7-11.7); PLATELET CLUMPS FLAG 0 (0-99); PLATELET COUNT 74 10^3/uL (150-400); RED BLOOD CELL COUNT 3.96 10^6/uL (4.40-6.38); RED CELL DISTRIBUTION WIDTH 14.3 % (11.5-15.2)
[2017-06-29] MEDS ORDERED: OXYMETAZOLINE 30 ML NASAL SPRAY EACHNARE ONE (01:12)
[2017-06-29] MEDS ORDERED: NS 1,000 ML IV ONE (01:15)
[2017-06-29] MEDS ORDERED: ALBUTEROL INH PREPACK MDI TAKEHOME ONE (01:28)
[2017-06-29 01:40] VITALS: BP 129/77; PULSE 103; RESP 18; TEMP 98.2; O2SAT 96
[2017-06-29 02:09] LABS: LACGHOST ORDER
== END 2017-06-29 02:06 | disposition home or self-care (01) ==
LOC: EDUNIT#
DX: J45.21 Mild intermittent asthma with (acute) exacerbation (principal); B20 Human immunodeficiency virus [HIV] disease; Z87.891 Personal history of nicotine dependence
CPT/HCPCS: J7512

== ENCOUNTER 2017-07-06 02:26 | Emergency (ER) | payer MEDICAID ==
[2017-07-06] MEDS ORDERED: IPRATROPIUM/ALBUTEROL 3 ML DEYVIAL IH ONE (02:46)
[2017-07-06] MEDS ORDERED: LIDOCAINE 2% VISCOUS 15 ML UDCUP PO ONE (02:47)
[2017-07-06] MEDS ORDERED: MAG HYDROX/AL HYDROX/SIMETH 30 ML UDCUP PO ONE (02:47)
[2017-07-06 03:02] LABS: ALANINE AMINOTRANSFERASE 227 IU/L (21-72); ALBUMIN 4.5 g/dL (3.5-5.0); ALKALINE PHOSPHATASE 95 IU/L (38-126); ANION GAP 20 mEq/L (8-16); ASPARTATE AMINOTRANSFERASE 306 IU/L (17-59); BILIRUBIN,TOTAL 0.8 mg/dL (0.1-1.4); CALCIUM 8.6 mg/dL (8.5-10.4); CARBON DIOXIDE 24 mEq/l (22-31); CHLORIDE 103 mEq/L (97-110); ETHANOL SERUM 287 mg/dL (0-10); GLOMERULAR FILTRATION RATE > 60; GLUCOSE 97 mg/dL (70-100); POTASSIUM 4.4 mEq/L (3.5-5.2); SODIUM 147 mEq/L (134-144); TOTAL PROTEIN 7.9 g/dL (6.3-8.2)
[2017-07-06 03:12] LABS: % IMMATURE GRANULYOCYTES 0.2 % (0.0-1.1); ABSOLUTE IMMATURE GRANULOCYTES 0.01 10^3/uL (0.00-0.10); ADD DIFF? NO; ADD MORPH? NO; ADD SCAN? NO; ATYPICAL LYMPHOCYTE FLAG 0 (0-99); FRAGMENT RBC FLAG 0 (0-99); HEMATOCRIT 38.8 % (40.0-51.0); HEMOGLOBIN 13.7 g/dL (13.7-17.5); LEFT SHIFT FLG 0 (0-99); LIPEMIA HEMOLYSIS FLAG 90 (0-99); MEAN CELL HEMOGLOBIN 33.9 pg (27.9-34.1); MEAN CELL HEMOGLOBIN CONCENTR. 35.3 g/dL (32.4-36.7); MEAN PLATELET VOLUME 8.9 fL (8.7-11.7); PLATELET CLUMPS FLAG 0 (0-99); PLATELET COUNT 93 10^3/uL (150-400); RED BLOOD CELL COUNT 4.04 10^6/uL (4.40-6.38); RED CELL DISTRIBUTION WIDTH 14.6 % (11.5-15.2)
[2017-07-06 04:12] VITALS: RESP 16
--- NOTE | 2017-07-06 04:17 | EDPHY ---
H & P Stated Complaint: SOB Time Seen by Provider: 07/06/17 02:28 HPI/ROS: HPI The patient presents brought in by ambulance with multiple complaints, from the street. He says he is feeling short of breath and has a sore throat. He has been coughing. He thinks his symptoms are due to problems with his esophagus is asking for medication for this. He was recently seen in the emergency department and diagnosed with an asthma exacerbation. He was started on azithromycin, he feels this did not help his symptoms.. REVIEW OF SYSTEMS Constitutional: No fever, no chills. Eyes: No discharge. ENT: No sore throat. Cardiovascular: No chest pain, no palpitations. Respiratory: No cough, positive for shortness of breath. Gastrointestinal: No abdominal pain, no vomiting. Genitourinary: No hematuria. Musculoskeletal: No back pain. Skin: No rashes. Neurological: No headache. PMHx: HIV, schizophrenia, not on any medications Soc Hx: Homeless, alcohol abuse PHYSICAL General Appearance: Alert, obviously intoxicated, disheveled Eyes: Pupils equal and round no pallor or injection ENT, Mouth: Mucous membranes moist Respiratory: There are no retractions, lungs are clear to auscultation Cardiovascular: Regular rate and rhythm Gastrointestinal: Abdomen is soft and non-tender, no masses, bowel sounds normal Neurological: A&O, moves all extremities Skin: Warm and dry, no rashes Musculoskeletal: Neck is supple non tender Extremities: symmetrical, full range of motion Psychiatric: Patient is oriented X 3, there is no agitation Source: Patient, EMS Exam Limitations: Intoxication - Personal History Current Tetanus/Diphtheria Vaccine: Yes Current Tetanus Diphtheria and Acellular Pertussis (TDAP): Yes Tetanus Vaccine Date: 2016 - Medical/Surgical History Hx Asthma: No Hx Chronic Respiratory Disease: No Hx Diabetes: No Hx Cardiac Disease: No Hx Renal Disease: No Hx Cirrhosis: Yes Hx Alcoholism: Yes Hx HIV/AIDS: Yes Hx Splenectomy or Spleen Trauma: No Other PMH: HIV +, SCHIZOPHRENIA, DEPRESSION, ANXIETY, PTSD,GOUT, ARTHRITIS R/T COMPRESSION OF LEFT LEG/CONVEYOR BELT, ETOH Abuse, THC - Social History Smoking Status: Light smoker Constitutional: Initial Vital Signs Temperature (C) 37.0 C 07/06/17 02:32 Heart Rate 109 H 07/06/17 02:32 Respiratory Rate 18 07/06/17 02:32 Blood Pressure 153/104 H 07/06/17 02:32 O2 Sat (%) 96 07/06/17 02:32 O2 Delivery Mode Room Air O2 (L/minute) 2 Allergies/Adverse Reactions: No Known Allergies Allergy (Verified 07/06/17 02:30) Home Medications: Medication Instructions Recorded Dolutegravir Sodium [Tivicay] 50 mg PO DAILY 08/22/16 Emtricitabine/Tenofov Alafenam 1 each PO DAILY 02/06/17 [Descovy 200-25 mg Tablet] traMADol [Ultram 50 mg (*)] 50 - 100 mg PO Q4H PRN #0 tab 02/12/17 AZITHROMYCIN [Z-PACK] 500 mg PO DAILY #1 packet 06/29/17 predniSONE 60 mg PO DAILY #9 tab 06/29/17 Medical Decision Making - Diagnostics Imaging Results: Chest x-ray two view shows no infiltrate, no pneumothorax, interpreted by me, radiology interpretation is pending. Differential Diagnosis: This is a 36-year-old homeless male with history of HIV, not on any antiretrovirals, schizophrenia, not on any medication, alcohol abuse, reported asthma, who presents brought in by ambulance for pain in his esophagus as well as shortness of breath. On arrival, he has normal vital signs, though mildly tachycardic. His respiratory distress seems to be quite transient and improves when he is settled in the room. On exam, his lungs are clear with no wheezes or diminished breath sounds or rhonchi. He asks for medication for his esophagus. He does not have any abdominal tenderness. He does not have any signs of oral thrush. He did report having hallucinations initially. However this resolved while he was in the emergency department. This could of been worsened by his alcohol intoxication. He denies any SI or HI. Differential diagnosis includes asthma exacerbation, pneumonia, bronchitis, esophagitis, gastritis, GERD. In the emergency department, patient was given a GI cocktail and a DuoNeb with complete improvement in his symptoms. He felt well enough to eat and had no further shortness of breath. I feel he may have a mild asthma exacerbation. I feel his symptoms of esophagus pain could be related to alcoholic gastritis. Labs were checked and did reveal findings consistent with alcoholic hepatitis. Lipase was slightly elevated, feel he may have mild pancreatitis from alcohol as well. He was observed for several hours and had no vital sign abnormalities and felt completely well. He will be discharged and I have encouraged him to follow up at [facility]. I have encouraged him to stop drinking as well. - Data Points Laboratory Results: Laboratory Results 07/06/17 03:05 07/06/17 02:30 07/06/17 07/06/17 07/06/17 05:05 03:05 02:30 WBC 4.35 10^3/uL 10^3/uL (3.80-9.50) RBC 4.04 10^6/uL L 10^6/uL (4.40-6.38) Hgb 13.7 g/dL g/dL (13.7-17.5) Hct 38.8 % L % (40.0-51.0) MCV 96.0 fL fL (81.5-99.8) MCH 33.9 pg pg (27.9-34.1) MCHC 35.3 g/dL g/dL (32.4-36.7) RDW 14.6 % % (11.5-15.2) Plt Count 93 10^3/uL L 10^3/uL (150-400) MPV 8.9 fL fL (8.7-11.7) Neut % (Auto) 42.6 % % (39.3-74.2) Lymph % (Auto) 40.2 % % (15.0-45.0) Jasper % (Auto) 16.1 % H % (4.5-13.0) Eos % (Auto) 0.7 % % (0.6-7.6) Baso % (Auto) 0.2 % L % (0.3-1.7) Nucleat RBC Rel Count 0.0 % % (0.0-0.2) Absolute Neuts (auto) 1.85 10^3/uL 10^3/uL (1.70-6.50) Absolute Lymphs (auto) 1.75 10^3/uL 10^3/uL (1.00-3.00) Absolute Monos (auto) 0.70 10^3/uL 10^3/uL (0.30-0.80) Absolute Eos (auto) 0.03 10^3/uL 10^3/uL (0.03-0.40) Absolute Basos (auto) 0.01 10^3/uL L 10^3/uL (0.02-0.10) Absolute Nucleated RBC 0.00 10^3/uL 10^3/uL (0-0.01) Immature Gran % 0.2 % % (0.0-1.1) Immature Gran # 0.01 10^3/uL 10^3/uL (0.00-0.10) Sodium 147 mEq/L H mEq/L (134-144) Potassium 4.4 mEq/L mEq/L (3.5-5.2) Chloride 103 mEq/L mEq/L (97-110) Carbon Dioxide 24 mEq/l mEq/l (22-31) Anion Gap 20 mEq/L H mEq/L (8-16) BUN 13 mg/dL mg/dL (7-23) Creatinine 1.0 mg/dL mg/dL (0.7-1.3) Estimated GFR > 60 Glucose 97 mg/dL mg/dL (70-100) Calcium 8.6 mg/dL mg/dL (8.5-10.4) Total Bilirubin 0.8 mg/dL mg/dL (0.1-1.4) AST 306 IU/L H IU/L (17-59) ALT 227 IU/L H IU/L (21-72) Alkaline Phosphatase 95 IU/L IU/L (38-126) Total Protein 7.9 g/dL g/dL (6.3-8.2) Albumin 4.5 g/dL g/dL (3.5-5.0) Lipase 332 IU/L H IU/L (23-300) Urine Opiates Screen NEGATIVE (NEGATIVE) Urine Barbiturates NEGATIVE (NEGATIVE) Ur Phencyclidine Scrn NEGATIVE (NEGATIVE) Ur Amphetamine Screen NEGATIVE (NEGATIVE) U Benzodiazepines Scrn NON-NEGATIVE H (NEGATIVE) Urine Cocaine Screen NEGATIVE (NEGATIVE) U Marijuana (THC) Screen NON-NEGATIVE H (NEGATIVE) Ethyl Alcohol 287 mg/dL H mg/dL (0-10) 07/06/17 02:30 WBC REJ RBC REJ Hgb REJ Hct REJ MCV REJ MCH REJ MCHC REJ RDW REJ Plt Count REJ MPV REJ Neut % (Auto) REJ Lymph % (Auto) REJ Jasper % (Auto) REJ Eos % (Auto) REJ Baso % (Auto) REJ Nucleat RBC Rel Count REJ Absolute Neuts (auto) REJ Absolute Lymphs (auto) REJ Absolute Monos (auto) REJ Absolute Eos (auto) REJ Absolute Basos (auto) REJ Absolute Nucleated RBC REJ Immature Gran % REJ Immature Gran # REJ Sodium Potassium Chloride Carbon Dioxide Anion Gap BUN Creatinine Estimated GFR Glucose Calcium Total Bilirubin AST ALT Alkaline Phosphatase Total Protein Albumin Lipase Urine Opiates Screen Urine Barbiturates Ur Phencyclidine Scrn Ur Amphetamine Screen U Benzodiazepines Scrn Urine Cocaine Screen U Marijuana (THC) Screen Ethyl Alcohol Medications Given: Discontinued Medications Al Hydroxide/Mg Hydroxide (Maalox Susp) 30 ml PO EDNOW ONE Stop: 07/06/17 02:48 Last Admin: 07/06/17 02:56 Dose: 30 ml Albuterol/Ipratropium (Duoneb) 3 ml IH EDNOW ONE Stop: 07/06/17 02:47 Last Admin: 07/06/17 02:56 Dose: 3 ml Lidocaine (Lidocaine 2% Viscous) 5 ml PO EDNOW ONE Stop: 07/06/17 02:48 Last Admin: 07/06/17 02:55 Dose: 5 ml Departure - Departure Disposition: Home, Routine, Self-Care Clinical Impression: Shortness of breath, Gastritis, Alcohol intoxication, Transaminitis Condition: Good Instructions: Alcohol Intoxication (ED) Referrals: [facility],. [Clinic] - As per Instructions
[2017-07-06 06:31] VITALS: BP 138/74; PULSE 90; TEMP 98.4; O2SAT 93
== END 2017-07-06 06:33 | disposition home or self-care (01) ==
LOC: EDUNIT#
DX: R06.02 Shortness of breath (principal); K29.70 Gastritis, unspecified, without bleeding; F10.129 Alcohol abuse with intoxication, unspecified; R74.0 Nonspecific elevation of levels of transaminase and lactic acid dehydrogenase [LDH]; B20 Human immunodeficiency virus [HIV] disease; F17.200 Nicotine dependence, unspecified, uncomplicated
CPT/HCPCS: 80305; G0480

== ENCOUNTER 2017-08-11 23:28 | Emergency (ER) | payer MEDICAID ==
--- NOTE | 2017-08-11 23:44 | EDPHY ---
H & P Stated Complaint: resp diff. HPI/ROS: HPI CHIEF COMPLAINT: Asthma attack, cough, sore throat. HISTORY OF PRESENT ILLNESS: This patient 36-year-old male, history of HIV, not on any medications currently presents emergency room with cough, sore throat and feeling like he is having an asthma attack. He states he has had a cough but nonproductive. Denies any fever. Main complaint wheezing. Additionally reports he has a sore throat. Past Medical History: HIV, asthma Past Surgical History: No recent surgery Social History: Homeless, daily marijuana use, denies alcohol Family History: Noncontributory ROS REVIEW OF SYSTEMS: A comprehensive 10 point review of systems is otherwise negative aside from elements mentioned in the history of present illness. Exam Constitutional appears nontoxic triage nursing summary reviewed, vital signs reviewed, awake/alert. Vital signs noted at triage tachycardic, oxygen saturation 91% Eyes normal conjunctivae and sclera, EOMI, PERRLA. HENT posterior pharynx is erythematous without any significant exudate or swelling, uvula midline,, moist mucus membranes, no epistaxis, neck supple/ no meningismus, no raccoon eyes. Respiratory slight wheezing bilaterally, decreased breath sounds bilaterally Cardiovascular rate normal, regular rhythm, no murmur, no edema, distal pulses normal. Gastrointestinal soft, non-tender, no rebound, no guarding, normal bowel sounds, no distension, no pulsatile mass. Genitourinary no CVA tenderness. Musculoskeletal no midline vertebral tenderness, full range of motion, no calf swelling, no tenderness of extremities, no meningismus, good pulses, neurovascularly intact. Skin pink, warm, & dry, no rash, skin atraumatic. Neurologic awake, alert and oriented x 3, AAOx3, moves all 4 extremities equally, motor intact, sensory intact, CN II-XII intact, normal cerebellar, normal vision, normal speech. Psychiatric normal mood/affect. Heme/Lymph/Immune no lymphadenopathy. Differential Diagnosis: Includes but is not limited to in a particular order: Viral syndrome, upper respiratory tract infection, pneumonia, bronchitis, acute asthma attack, strep pharyngitis, viral pharyngitis, RPA, [employer] Medical Decision Making: Plan for this patient IV establishment IV fluid bolus , chest x-ray, DuoNeb breathing treatment, Solu-Medrol, rapid strep, and re- evaluate Re-evaluation: 0120: Patient is feeling much better after DuoNeb breathing treatment, IV fluids and Solu-Medrol. Patient's chest x-ray does not show acute pneumonia. His influenza test is negative. Patient is positive for RSV. This most likely the main cause of his cough and wheezing. Patient will receive azithromycin for his throat given his HIV status, additionally will prescribe an albuterol inhaler, and a few days of Decadron. Return precautions discussed with the patient understands he has worsening shortness of breath, high fever, worsening sore throat, vomiting he needs return emergency room. Source: Patient - Personal History Current Tetanus/Diphtheria Vaccine: Yes Current Tetanus Diphtheria and Acellular Pertussis (TDAP): Yes Tetanus Vaccine Date: 2016 - Medical/Surgical History Hx Asthma: No Hx Chronic Respiratory Disease: No Hx Diabetes: No Hx Cardiac Disease: No Hx Renal Disease: No Hx Cirrhosis: Yes Hx Alcoholism: Yes Hx HIV/AIDS: Yes Hx Splenectomy or Spleen Trauma: No Other PMH: HIV +, SCHIZOPHRENIA, DEPRESSION, ANXIETY, PTSD,GOUT, ARTHRITIS R/T COMPRESSION OF LEFT LEG/CONVEYOR BELT, ETOH Abuse, THC - Social History Smoking Status: Light smoker Constitutional: Initial Vital Signs Temperature (C) 37 C 08/11/17 23:29 Heart Rate 110 H 08/11/17 23:29 Respiratory Rate 20 08/11/17 23:29 Blood Pressure 135/82 H 08/11/17 23:29 O2 Sat (%) 91 L 08/11/17 23:29 O2 Delivery Mode Room Air O2 (L/minute) 2 Allergies/Adverse Reactions: No Known Allergies Allergy (Verified 07/06/17 02:30) Home Medications: Medication Instructions Recorded Dolutegravir Sodium [Tivicay] 50 mg PO DAILY 08/22/16 Emtricitabine/Tenofov Alafenam 1 each PO DAILY 02/06/17 [Descovy 200-25 mg Tablet] traMADol [Ultram 50 mg (*)] 50 - 100 mg PO Q4H PRN #0 tab 02/12/17 AZITHROMYCIN [Z-PACK] 500 mg PO DAILY #1 packet 06/29/17 predniSONE 60 mg PO DAILY #9 tab 06/29/17 AZITHROMYCIN [Z-PACK] 250 mg PO DAILY #6 tab 08/12/17 Albuterol [Proventil Inhaler HFA 1 - 2 puffs IH Q4H #1 mdi 08/12/17 (*)] Dexamethasone [Decadron 4 MG (*)] 4 mg PO DAILY #4 tab 08/12/17 Medical Decision Making - Diagnostics Imaging Results: Imaging Impressions Chest X-Ray 08/11/17 23:47 Impression: SPECT airways disease with no superimposed pneumonia identified. - Data Points Laboratory Results: Laboratory Results 08/11/17 23:59 08/11/17 23:59 08/12/17 08/12/17 08/11/17 Unknown 00:15 23:59 WBC RBC Hgb Hct MCV MCH MCHC RDW Plt Count MPV Neut % (Auto) Lymph % (Auto) [place] % (Auto) Eos % (Auto) Baso % (Auto) Nucleat RBC Rel Count Absolute Neuts (auto) Absolute Lymphs (auto) Absolute Monos (auto) Absolute Eos (auto) Absolute Basos (auto) Absolute Nucleated RBC Immature Gran % Immature Gran # Sodium 144 mEq/L mEq/L (135-145) Potassium 3.5 mEq/L mEq/L (3.5-5.2) Chloride 104 mEq/L mEq/L (97-110) Carbon Dioxide 25 mEq/l mEq/l (22-31) Anion Gap 15 mEq/L mEq/L (8-16) BUN 11 mg/dL mg/dL (7-23) Creatinine 0.9 mg/dL mg/dL (0.7-1.3) Estimated GFR > 60 Glucose 96 mg/dL mg/dL (70-100) Calcium 8.2 mg/dL L mg/dL (8.5-10.4) Nasal Influenza A PCR NEGATIVE FOR FLU A (NEGATIVE) Nasal Influenza B PCR NEGATIVE FOR FLU B (NEGATIVE) Influenza A,B Rapid Group A Strep Screen NEGATIVE (NEGATIVE) Group A Strep DNA Pending 08/11/17 08/11/17 08/11/17 23:59 23:47 23:47 WBC 5.12 10^3/uL 10^3/uL (3.80-9.50) RBC 3.94 10^6/uL L 10^6/uL (4.40-6.38) Hgb 13.2 g/dL L g/dL (13.7-17.5) Hct 37.9 % L % (40.0-51.0) MCV 96.2 fL fL (81.5-99.8) MCH 33.5 pg pg (27.9-34.1) MCHC 34.8 g/dL g/dL (32.4-36.7) RDW 13.4 % % (11.5-15.2) Plt Count 65 10^3/uL L 10^3/uL (150-400) MPV 10.1 fL fL (8.7-11.7) Neut % (Auto) 74.0 % % (39.3-74.2) Lymph % (Auto) 13.3 % L % (15.0-45.0) [place] % (Auto) 9.4 % % (4.5-13.0) Eos % (Auto) 2.1 % % (0.6-7.6) Baso % (Auto) 0.8 % % (0.3-1.7) Nucleat RBC Rel Count 0.0 % % (0.0-0.2) Absolute Neuts (auto) 3.79 10^3/uL 10^3/uL (1.70-6.50) Absolute Lymphs (auto) 0.68 10^3/uL L 10^3/uL (1.00-3.00) Absolute Monos (auto) 0.48 10^3/uL 10^3/uL (0.30-0.80) Absolute Eos (auto) 0.11 10^3/uL 10^3/uL (0.03-0.40) Absolute Basos (auto) 0.04 10^3/uL 10^3/uL (0.02-0.10) Absolute Nucleated RBC 0.00 10^3/uL 10^3/uL (0-0.01) Immature Gran % 0.4 % % (0.0-1.1) Immature Gran # 0.02 10^3/uL 10^3/uL (0.00-0.10) Sodium Potassium Chloride Carbon Dioxide Anion Gap BUN Creatinine Estimated GFR Glucose Calcium Nasal Influenza A PCR Nasal Influenza B PCR Influenza A,B Rapid Cancelled Group A Strep Screen Cancelled Group A Strep DNA Medications Given: Discontinued Medications Albuterol/Ipratropium (Duoneb) 3 ml IH EDNOW ONE Stop: 08/11/17 23:47 Last Admin: 08/11/17 23:53 Dose: 3 ml Sodium Chloride (Ns) 1,000 mls @ 0 mls/hr IV ONCE ONE; Wide Open PRN Reason: Protocol Stop: 08/11/17 23:47 Last Admin: 08/11/17 23:53 Dose: 1,000 mls Methylprednisolone Sodium Succinate (Solu-Medrol) 125 mg IVP EDNOW ONE Stop: 08/12/17 00:00 Last Admin: 08/12/17 00:02 Dose: 125 mg Departure - Departure Disposition: Home, Routine, Self-Care Clinical Impression: Bronchitis, RSV (acute bronchiolitis due to respiratory syncytial virus) Condition: Good Instructions: Respiratory Syncytial Virus (ED), Wheezing (ED), Acute Bronchitis (ED) Additional Instructions: 1. Drink lots of fluids stay well-hydrated. 2. Antibiotics as prescribed. 3. Albuterol 2 puffs every 4 hr as needed for cough and wheezing. 4. Return emergency room if you have worsening symptoms questions or concerns. Referrals: NONE *PRIMARY CARE P,. [Primary Care Provider] - As per Instructions Prescriptions: Albuterol [Proventil Inhaler HFA (*)] 1 - 2 puffs IH Q4H #1 mdi AZITHROMYCIN [Z-PACK] 250 mg PO DAILY #6 tab Dexamethasone [Decadron 4 MG (*)] 4 mg PO DAILY #4 tab
[2017-08-11] MEDS ORDERED: IPRATROPIUM/ALBUTEROL 3 ML DEYVIAL IH ONE (23:46)
[2017-08-11] MEDS ORDERED: NS 1,000 ML IV ONE (23:46)
[2017-08-11] MEDS ORDERED: methylPREDNISolone SOD SUCC 125 MG/2 ML VIAL IVP ONE (23:59)
[2017-08-12] MEDS ORDERED: AZITHROMYCIN 250 MG TAB PO SCH
[2017-08-12] MEDS ORDERED: DEXAMETHASONE 4 MG TAB PO SCH
[2017-08-12 00:07] VITALS: RESP 18
[2017-08-12 00:13] LABS: PLATELET COUNT 65 10^3/uL (150-400)
[2017-08-12 01:23] VITALS: BP 132/82; PULSE 101; O2SAT 94
[2017-08-12] MEDS ORDERED: ALBUTEROL INH PREPACK MDI TAKEHOME ONE ×2 (01:25→01:27)
[2017-08-12 01:56] VITALS: TEMP 98.6
== END 2017-08-12 02:07 | disposition home or self-care (01) ==
LOC: EEVIPCON 23:28
DX: J20.9 Acute bronchitis, unspecified (principal); J45.909 Unspecified asthma, uncomplicated; B20 Human immunodeficiency virus [HIV] disease; F17.200 Nicotine dependence, unspecified, uncomplicated; E86.9 Volume depletion, unspecified; J21.0 Acute bronchiolitis due to respiratory syncytial virus
CPT/HCPCS: 87400-PO; 96374; J2930

== ENCOUNTER 2018-01-10 23:36 | Emergency (ER) | payer MEDICAID ==
--- NOTE | 2018-01-10 23:41 | EDPHY ---
H & P Time Seen by Provider: 01/10/18 23:41 HPI/ROS: HPI CHIEF COMPLAINT: Alcohol intoxication, facial trauma HISTORY OF PRESENT ILLNESS: 37-year-old male, alcohol, homeless, history of HIV , presents emergency room by EMS with police for medical clearance for assisted. Patient states that he is unsure exactly what happened he may have fallen his head. Does not recall the events. He presents emergency room highly intoxicated alcohol. Abrasion present with minimal bleeding to the left maxillary cheek region. Denies any chest pain shortness of breath, denies neck pain. Past Medical History: HIV Past Surgical History: No recent surgery Social History: Homeless Family History: Noncontributory ROS REVIEW OF SYSTEMS: A comprehensive 10 point review of systems is otherwise negative aside from elements mentioned in the history of present illness. Exam Constitutional intoxicated with alcohol, slurring speech, smells of alcohol triage nursing summary reviewed, vital signs reviewed, awake/alert. Eyes normal conjunctivae and sclera, EOMI, PERRLA. HENT head/neck: Abrasion with dry blood over the left maxillary, no large laceration, otherwise atraumatic head and neck exam, moist mucus membranes, no epistaxis, neck supple/ no meningismus, no raccoon eyes. Respiratory clear to auscultation bilaterally, normal breath sounds, no respiratory distress, no wheezing. Cardiovascular rate normal, regular rhythm, no murmur, no edema, distal pulses normal. Gastrointestinal soft, non-tender, no rebound, no guarding, normal bowel sounds, no distension, no pulsatile mass. Genitourinary no CVA tenderness. Musculoskeletal no midline vertebral tenderness, full range of motion, no calf swelling, no tenderness of extremities, no meningismus, good pulses, neurovascularly intact. Skin pink, warm, & dry, no rash, skin atraumatic. Neurologic awake, alert and oriented x 3, AAOx3, moves all 4 extremities equally, motor intact, sensory intact, CN II-XII intact, normal cerebellar, normal vision, slurring speech Psychiatric normal mood/affect. Heme/Lymph/Immune no lymphadenopathy. Differential Diagnosis: Includes but is not limited to in a particular order acute alcohol intoxication, intracranial bleed, subdural, traumatic subarachnoid , facial contusion, soft tissue injury, facial fracture Medical Decision Making: Plan for this patient breath alcohol, CT scan head without contrast. If CT scan head shows no acute traumatic injury patient can be medically cleared for assisted. Re-evaluation: CT scan head without contrast negative for acute bleed or traumatic injury called to me by Dr. Vasquez. Source: Patient, Police, EMS - Personal History Tetanus Vaccine Date: 2016 - Medical/Surgical History Hx Asthma: No Hx Chronic Respiratory Disease: No Hx Diabetes: No Hx Cardiac Disease: No Hx Renal Disease: No Hx Cirrhosis: Yes Hx Alcoholism: Yes Hx HIV/AIDS: Yes Hx Splenectomy or Spleen Trauma: No Other PMH: HIV +, SCHIZOPHRENIA, DEPRESSION, ANXIETY, PTSD,GOUT, ARTHRITIS R/T COMPRESSION OF LEFT LEG/CONVEYOR BELT, ETOH Abuse, THC - Social History Smoking Status: Light smoker Constitutional: Initial Vital Signs Temperature (C) 36.5 C 01/10/18 23:30 Heart Rate 102 H 01/10/18 23:30 Respiratory Rate 16 01/10/18 23:30 Blood Pressure 182/62 H 01/10/18 23:30 O2 Sat (%) 94 01/10/18 23:30 O2 Delivery Mode Room Air Allergies/Adverse Reactions: No Known Allergies Allergy (Verified 07/06/17 02:30) Home Medications: Medication Instructions Recorded Dolutegravir Sodium [Tivicay] 50 mg PO DAILY 08/22/16 Emtricitabine/Tenofov Alafenam 1 each PO DAILY 02/06/17 [Descovy 200-25 mg Tablet] traMADol [Ultram 50 mg (*)] 50 - 100 mg PO Q4H PRN #0 tab 02/12/17 AZITHROMYCIN [Z-PACK] 500 mg PO DAILY #1 packet 06/29/17 predniSONE 60 mg PO DAILY #9 tab 06/29/17 AZITHROMYCIN [Z-PACK] 250 mg PO DAILY #6 tab 08/12/17 Albuterol [Proventil Inhaler HFA 1 - 2 puffs IH Q4H #1 mdi 08/12/17 (*)] Dexamethasone [Decadron 4 MG (*)] 4 mg PO DAILY #4 tab 08/12/17 Departure - Departure Disposition: Home, Routine, Self-Care Clinical Impression: Alcohol intoxication Qualifiers: Complication of substance-induced condition: uncomplicated Qualified Code(s): F10.920 - Alcohol use, unspecified with intoxication, uncomplicated Condition: Good Instructions: Alcohol Intoxication (ED), Abuse of Alcohol (ED) Additional Instructions: 1. Medically cleared for assisted.
[2018-01-11 00:44] VITALS: BP 177/61
== END 2018-01-11 00:43 | disposition home or self-care (01) ==
LOC: EDUNIT#
DX: S00.81XA Abrasion of other part of head, initial encounter (principal); F10.920 Alcohol use, unspecified with intoxication, uncomplicated; B20 Human immunodeficiency virus [HIV] disease; F17.200 Nicotine dependence, unspecified, uncomplicated; X50.9XXA Other and unspecified overexertion or strenuous movements or postures, initial encounter

== ENCOUNTER 2018-03-11 23:39 | Emergency (ER) | payer MEDICAID ==
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
[2018-03-12 01:50] VITALS: BP 123/74
== END 2018-03-12 01:51 | disposition home or self-care (01) ==
LOC: EDUNIT#
DX: S02.2XXA Fracture of nasal bones, initial encounter for closed fracture (principal); F10.929 Alcohol use, unspecified with intoxication, unspecified; B20 Human immunodeficiency virus [HIV] disease; Y04.8XXA Assault by other bodily force, initial encounter
CPT/HCPCS: G0480

== ENCOUNTER 2018-03-21 13:22 | Emergency (ER) | payer MEDICAID ==
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
[2018-03-21 13:26] VITALS: BP 114/90
--- NOTE | 2018-03-21 14:54 | ASMTCMCOM ---
CM Note CM Note Notes: ER report faxed to Meliza Zhong NP at [facility] . Patient transported to [facility] ([facility]) with ER voucher Date Signed: 03/21/2018 02:54 PM Electronically Signed By:Yahaira Gonzalez RN
== END 2018-03-21 14:25 | disposition home or self-care (01) ==
LOC: EDUNIT#
DX: F10.920 Alcohol use, unspecified with intoxication, uncomplicated (principal); Z59.0 Homelessness; Z21 Asymptomatic human immunodeficiency virus [HIV] infection status

== ENCOUNTER 2018-04-18 12:40 | Emergency (ER) | payer MEDICAID ==
[2018-04-18 13:25] LABS: PLATELET COUNT 141 10^3/uL (150-400)
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
[2018-04-18 16:53] VITALS: BP 110/68
== END 2018-04-18 18:08 | disposition home or self-care (01) ==
LOC: EEVIPCON 12:40
DX: F10.121 Alcohol abuse with intoxication delirium (principal); Z59.0 Homelessness; Z21 Asymptomatic human immunodeficiency virus [HIV] infection status; F20.9 Schizophrenia, unspecified; F19.10 Other psychoactive substance abuse, uncomplicated; Y90.8 Blood alcohol level of 240 mg/100 ml or more
CPT/HCPCS: 80305; G0480

== ENCOUNTER 2018-04-20 14:29 | Emergency (ER) | payer MEDICAID ==
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
[2018-04-20] MEDS ORDERED: PROPARACAINE 0.5% 15 ML OPHT DROP ONE (15:26)
[2018-04-20] MEDS ORDERED: PROPARACAINE/FLUORESCEIN SOD 5 ML OPHT.BTL OP ONE (15:26)
[2018-04-20] MEDS ORDERED: PROPARACAINE/FLUORESCEIN SOD 5 ML OPHT.BTL ONE (15:26)
[2018-04-20] MEDS ORDERED: ERYTHROMYCIN 0.5% 1 GM OPHT.OINT EACHEYE ONE (15:31)
[2018-04-20] MEDS ORDERED: CHLORDIAZEPOXIDE 25MG PREPK#6 BTL TAKEHOME ONE (21:17)
[2018-04-20 21:29] VITALS: BP 121/89
== END 2018-04-20 21:50 | disposition home or self-care (01) ==
LOC: EDUNIT#
DX: H10.213 Acute toxic conjunctivitis, bilateral (principal); T59.3X1A Toxic effect of lacrimogenic gas, accidental (unintentional), initial encounter; Y35.893A Legal intervention involving other specified means, suspect injured, initial encounter; F10.129 Alcohol abuse with intoxication, unspecified

== ENCOUNTER 2018-04-30 12:43 | Emergency (ER) | payer MEDICAID, OTHER ==
--- NOTE | 2018-04-30 14:22 | EDPHY ---
H & P Time Seen by Provider: 04/30/18 13:00 HPI/ROS: HPI Alcohol intoxication. 37-year-old male on an arc hold with [employer]. This patient was found intoxicated and unable to ambulate on the street. Police noted a strong odor of alcohol on his breath as well as some slurred speech. This brought to the emergency department to sober. No history of trauma or assault. Patient denies any complaints. ROS: Constitutional: No fever, no chills. No weakness. Eyes: No discharge. No changes in vision. ENT: No sore throat. No nasal congestion or rhinorrhea. Respiratory: No cough. No shortness of breath. Cardiac: No chest pain, no palpitations. Gastrointestinal: No abdominal pain, no vomiting, no diarrhea. Genitourinary: No hematuria. No dysuria or increased frequency with urination. Musculoskeletal: No back pain. No neck pain. No myalgias or arthralgias. Skin: No rashes. Neurological: No headache. No focal weakness or altered sensation. Past medical history: HIV positive, schizophrenia, depression, anxiety, PTSD, gouty arthritis, alcohol and drug abuse. Social history: Homeless. Smoker. History of alcohol and drug abuse. Multiple visits to the emergency department. Physical Exam: General Appearance: Sleeping but arouses to voice and mumbles. Dirty. Strong odor of alcohol on his breath. This patient appears generally well-hydrated and well-nourished. Head: Normocephalic atraumatic. Eyes: Pupils equal and round no pallor or injection. No lid edema, erythema or injection. ENT, Mouth: Mucous membranes are moist. The pharyngeal tissues are unremarkable. No edema or swelling. No asymmetry suggestive of abscess. No erythema or exudates. No tongue lacerations or abrasions. Poor dentition. Respiratory: There are no retractions, lungs are clear to auscultation with good air movement bilaterally. Cardiovascular: Regular rate and rhythm. No murmur. Gastrointestinal: Abdomen is soft and nontender, no masses, bowel sounds normal. No focal tenderness at McBurney's point. No Redman sign. Neurological: Motor sensory function is grossly intact. Cranial nerves are normal. Gait is normal. Skin: Warm and dry, no rashes. Musculoskeletal: Neck is supple and nontender. Extremities are symmetrical. All joints range without pain or impingement. Psychiatric: No agitation. No depression. Database: EKG: Imaging: Procedures: Emergency department course: Triage vital signs reviewed and are normal. Patient afebrile. Patient is mildly hypoxic with room air pulse oximetry 89-90% when sleeping. He was placed on a monitor tech. He was placed on oxygen at 2 L by nasal cannula. Plan will be to observe him as he tommy and disposition him to the [facility] when appropriate. 7:00 p.m., patient is now awake, up and ambulatory under his own power. He denies any complaints. He states that he also used methamphetamine and LSD. No history of traumatic injury. He is appropriately sober for discharge to the [facility] with [employer]. His remaining emergency department course under my care has been uneventful. He was discharged in good condition with [employer]. Differential Diagnosis: The differential diagnosis on this patient includes but is not limited to alcohol intoxication. Traumatic brain injury, other significant traumatic injury unlikely. This represents a partial list of diagnoses considered. These considerations are based on history, physical exam, past history, reassessment and diagnostic testing. Smoking Status: Former smoker Constitutional: Initial Vital Signs Temperature (C) 36.9 C 04/30/18 12:49 Heart Rate 98 04/30/18 12:49 Respiratory Rate 12 04/30/18 12:49 Blood Pressure 124/77 H 04/30/18 12:49 O2 Sat (%) 90 L 04/30/18 12:49 O2 Delivery Mode Nasal Cannula O2 (L/minute) 2 Allergies/Adverse Reactions: No Known Allergies Allergy (Verified 03/11/18 23:53) Home Medications: Medication Instructions Recorded Dolutegravir Sodium [Tivicay] 25 mg PO 03/11/18 busPIRone [Buspar (*)] 03/11/18 Departure - Departure Disposition: Law Enforcement/Court/Assisted Clinical Impression: Alcohol intoxication Condition: Good Instructions: Abuse of Alcohol (ED) Additional Instructions: Read and follow provided instructions. Follow-up with your primary care physician at [facility] in 1-2 days for re -evaluation and to discuss detox options. Return to the emergency department for worsening symptoms or other serious concerns. Referrals: [facility] Detox 24 Hours [Outside] - As per Instructions
[2018-04-30 18:47] VITALS: BP 120/80
[2018-04-30] MEDS ORDERED: CHLORDIAZEPOXIDE 25MG PREPK#6 BTL TAKEHOME ONE (20:50)
== END 2018-04-30 21:35 ==
LOC: EDUNIT#
DX: F10.29 Alcohol dependence with unspecified alcohol-induced disorder (principal); Z21 Asymptomatic human immunodeficiency virus [HIV] infection status; F20.9 Schizophrenia, unspecified

== ENCOUNTER 2018-07-09 23:22 | Emergency (ER) | payer MEDICAID ==
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
[2018-07-09 23:33] VITALS: BP 115/83
== END 2018-07-09 23:59 ==
LOC: EDUNIT#
DX: F10.921 Alcohol use, unspecified with intoxication delirium (principal); Y90.8 Blood alcohol level of 240 mg/100 ml or more; F20.9 Schizophrenia, unspecified; F19.10 Other psychoactive substance abuse, uncomplicated; Z21 Asymptomatic human immunodeficiency virus [HIV] infection status; Z59.0 Homelessness

== ENCOUNTER 2018-08-16 19:43 | Emergency (ER) | payer MEDICAID ==
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
[2018-08-16] MEDS ORDERED: CHLORDIAZEPOXIDE 25MG PREPK#6 BTL TAKEHOME ONE (20:43)
[2018-08-16 20:59] VITALS: BP 132/74
== END 2018-08-16 20:59 | disposition home or self-care (01) ==
LOC: EDUNIT#
DX: F10.10 Alcohol abuse, uncomplicated (principal); Z87.891 Personal history of nicotine dependence; Z59.0 Homelessness

== ENCOUNTER 2018-08-17 21:40 | Emergency (ER) | payer MEDICAID ==
[2018-08-17] MEDS ORDERED: CHLORDIAZEPOXIDE 25MG PREPK#6 BTL TAKEHOME ONE (21:43)
--- NOTE | 2018-08-17 21:43 | EDPHY ---
HPI/HX/ROS/PE/MDM Narrative: CHIEF COMPLAINT: Intoxication HPI: This is a 37 y/o male well-known to this department who arrives in [employer] custody intoxicated and needing Librium so he can enter the detox facility. He admits to alcohol use today and has no acute complaints. No co-ingestions, recent trauma, recent illness. REVIEW OF SYSTEMS: Unable to obtain secondary to intoxication. PMH: Alcoholism SOCIAL HISTORY: Alcohol abuse. Homeless. PHYSICAL EXAM: General:Patient is alert, in no acute distress. Appears intoxicated. ENT:Eyes are normal to inspection. ENT inspection normal. Neck: Normal inspection. Full range of motion. Respiratory:No respiratory distress. Breath sounds normal bilaterally. Cardiovascular: Regular rate and rhythm. Strong peripheral pulses. Normal cap refill. Neuro: Interactive. No gross deficits. ED Course: Script for Librium provided. Patient discharged in PD custody for transport to the [facility]. Follow up instructions provided. MDM: This patient presents with acute alcohol intoxication, and [facility] officer says the sole reason for ED visit is to obtain a Librium prepack so that patient may be transported to the [facility]. No report of trauma or other medical issue. General Initial Vital Signs: Initial Vital Signs Temperature (C) 36.2 C 08/17/18 21:46 Heart Rate 95 08/17/18 21:46 Respiratory Rate 16 08/17/18 21:46 Blood Pressure 162/95 H 08/17/18 21:46 O2 Sat (%) 93 08/17/18 21:46 O2 Delivery Mode Room Air Allergies/Adverse Reactions: No Known Allergies Allergy (Verified 08/16/18 19:49) Home Medications: Medication Instructions Recorded Dolutegravir Sodium [Tivicay] 25 mg PO 03/11/18 busPIRone [Buspar (*)] 03/11/18 Departure - Departure Disposition: Home, Routine, Self-Care Clinical Impression: Alcohol intoxication Qualifiers: Complication of substance-induced condition: uncomplicated Qualified Code(s): F10.920 - Alcohol use, unspecified with intoxication, uncomplicated Condition: Good Instructions: Chlordiazepoxide/Clidinium (By mouth), Alcohol Intoxication (ED) Additional Instructions: Take Librium as directed. Follow up with your primary care provider as needed. Go directly to detox. Referrals: [facility] Detox 24 Hours [Outside] - As per Instructions Report Scribed for: Srinath Bianchi Report Scribed by: Lian Hendrickson Date of Report: 08/17/18 Time of Report: 21:43 Physician Review and Approval Statement: Portions of this note were transcribed by an ED scribe. I personally performed the history, physical exam, and medical decision making; and confirm the accuracy of the information in the transcribed note.
[2018-08-17 21:47] VITALS: BP 162/95
== END 2018-08-17 21:49 | disposition home or self-care (01) ==
DX: F10.920 Alcohol use, unspecified with intoxication, uncomplicated (principal)

== ENCOUNTER 2018-08-19 00:57 | Inpatient (IN) | payer MEDICAID ==
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
[2018-08-19] MEDS ORDERED: IBUPROFEN 600 MG TAB PO ONE ×2 (05:30→05:32)
[2018-08-19] MEDS ORDERED: NS 1,000 ML IV ONE (06:29)
[2018-08-19] MEDS ORDERED: HYDROmorphONE/DILAUDID 2 MG/ML INJ IVP ONE (06:29)
[2018-08-19] MEDS ORDERED: ONDANSETRON 4 MG/2 ML VIAL IVP ONE (06:29)
[2018-08-19 06:50] LABS: PLATELET COUNT 157 10^3/uL (150-400)
[2018-08-19 07:05] LABS: INR 1.06 (0.83-1.16)
[2018-08-19] MEDS ORDERED: LORazepam 2 MG/ML INJ IVP PRN ×2 (07:48→20:30)
[2018-08-19] MEDS ORDERED: LORazepam 1 MG TAB PO PRN ×2 (07:48→20:30)
--- NOTE | 2018-08-19 12:33 | ASMTLACE ---
YULISSA Comorbidities - select Answers: AIDS all that apply Moderate or severe liver or renal disease # of Emergency department Answers: 9-12 visits in the last 6 months Social determinants Answers: History of substance abuse (ETOH, street drugs, prescription drugs, etc.) Homelessness (street, retirement) Score: 19 Date Signed: 08/19/2018 12:32 PM Electronically Signed By:Yahaira Gonzalez RN
[2018-08-19] MEDS ORDERED: ONDANSETRON DISINTEGRATING 4 MG TAB PO PRN (12:48)
[2018-08-19] MEDS ORDERED: ZOLPIDEM TARTRATE 5 MG TAB PO PRN (12:48)
[2018-08-19] MEDS ORDERED: HYDROmorphONE/DILAUDID 1 MG/ML INJ IVP PRN (12:54)
--- NOTE | 2018-08-19 12:54 | ASMTCMCOM ---
CM Note CM Note Notes: Patient familiar to this CM from several previous ED visits. Chart reviewed and met with patient prior to transfer upstairs. Patient has been followed by Meliza Zhong GLOBAL SECURITY ARCHITECT at [facility] although patient tells me he has missed his last couple of appointments. Patient remains homeless and tells me that he is still connected with [facility] ([facility]). He has an appointment there tomorrow at 1:30 to work with someone re obtaining a [place] State ID. Patient is originally from [place] and tells me that he is essentially "disowned" from his family related to his alcoholism. Patient receives medication assistance, bus passess, and other resources through the [facility]. He completed coordinated entry at [facility] about 6 months ago and was routed to [facility] but tells me that he only stayed at the [facility] one or two nights. Patient is familiar with the [facility] and is aware of the permament location (w[facility]) at the [facility] on [address]. I have LM with Meliza Zhong at [id number] re patient's admission. I have also contacted Claus at [facility] re patient's scheduled appointment tomorrow afternoon and admission to the hospital. Patient aware he can contact [facility] himself re this appointment as well and I have encouraged patient to follow up at [facility] or regarding utilizing community CM resources. ADAM deutsch prn Date Signed: 08/19/2018 12:53 PM Electronically Signed By:Yahaira Gonzalez RN
[2018-08-19] MEDS ORDERED: D5W 1/2 NS W/ 20 KCl/L 1,000 ML IV SCH (13:00)
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
[2018-08-19] MEDS: OXYCODONE/APAP 5/325 TAB PO PRN (15:54)
[2018-08-19] MEDS ORDERED: EMTRICITABINE/TENOFOVIR 200MG/300MG TAB PO SCH (16:40)
[2018-08-19] MEDS ORDERED: RALTEGRAVIR 400 MG TAB PO SCH (16:40)
[2018-08-19] MEDS: [UNRECOGNIZED DRUG - OTHER] PO SCH (17:43)
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
[2018-08-20] MEDS: OXYCODONE/APAP 5/325 TAB PO PRN ×4 (04:41→18:23)
[2018-08-20 06:04] LABS: PLATELET COUNT 133 10^3/uL (150-400)
[2018-08-20] MEDS: [UNRECOGNIZED DRUG - OTHER] PO SCH (08:31)
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
[2018-08-20] MEDS ORDERED: IBUPROFEN 600 MG TAB PO PRN (12:10)
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
[2018-08-20] MEDS: LIDOCAINE 4%/MENTHOL 1% PATCH TD SCH (14:19)
--- NOTE | 2018-08-20 15:53 | ASMTCMCOM ---
CM Note CM Note Notes: 08/20/2018 Case Management Note Met w/pt to discuss discharge needs. Pt is well connected to community resources. Laverne is his case repairer at [facility], she can be reached at [phone]. Pt is meeting with Laverne on Friday for assistance in obtaining a [place] ID. Pt has TB test results to take to [facility]. Pt reports plans for follow up appointment at [facility] next week. Pt has plans to connect with [facility] and to apply for food stamps. Pt has 4 children with 4 different mothers ages 21, 19, 17 and 12. Pt has strained relationships with his family in [place]. Pt mother Skyler lives in the [facility] in [place] in Room 11. Pt unable to recall phone number. Case Management d/c poc: [facility] bed Case Management to follow. Date Signed: 08/20/2018 03:53 PM Electronically Signed By:Natalie Christine RN
[2018-08-20] MEDS: FAMOTIDINE 20 MG TAB PO SCH (20:28)
[2018-08-20] MEDS ORDERED: PATCH REMOVAL 1 EA PATCH TD SCH (21:00)
[2018-08-21] MEDS: OXYCODONE/APAP 5/325 TAB PO PRN ×2 (02:30→08:14)
[2018-08-21] MEDS ORDERED: CEPACOL LOZENGE PO PRN (02:35)
[2018-08-21] MEDS: LIDOCAINE 4%/MENTHOL 1% PATCH TD SCH (08:13)
[2018-08-21] MEDS: FAMOTIDINE 20 MG TAB PO SCH (08:14)
[2018-08-21] MEDS: [UNRECOGNIZED DRUG - OTHER] PO SCH (08:14)
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
--- NOTE | 2018-08-21 11:09 | ASMTDCNOTE ---
Case Management Discharge Discharge Order Complete? Answers: Yes Patient to Obtain Answers: Independently Medications Transportation Arranged Answers: Other Notes: bus pass from [facility] Discharge Comments Notes: Patient discharged to [facility], [facility] reserved bed. He will present his TB test paperwork to the Residential in order to get a reserved bed. His [facility] ecmo specialist has given him bus passes. He will f/u with them on Friday. Date Signed: 08/21/2018 11:08 AM Electronically Signed By:Jaelyn Patricio RN
[2018-08-21 12:23] VITALS: BP 128/91
[2018-08-25 11:45] LABS: HIV-1 RNA PCR < 1.00 copy/mL (<30)
== END 2018-08-21 14:24 | disposition home or self-care (01) | DRG 135 ==
LOC: EDUNIT# → OBSVTOIN 12:55 → F3E 14:37
PROVIDERS: ADMIT Surgery; ATTEND Surgery
DX: S22.41XA Multiple fractures of ribs, right side, initial encounter for closed fracture (principal); F20.9 Schizophrenia, unspecified; Z21 Asymptomatic human immunodeficiency virus [HIV] infection status; F10.229 Alcohol dependence with intoxication, unspecified; Y90.6 Blood alcohol level of 120-199 mg/100 ml; Y04.8XXA Assault by other bodily force, initial encounter; Z59.0 Homelessness; F32.9 Major depressive disorder, single episode, unspecified; F43.10 Post-traumatic stress disorder, unspecified; M10.9 Gout, unspecified
CPT/HCPCS: 87536-90; 92523-GN; 96374; 97161-GP; 97165-GO; G0480; J1170; J2405

== ENCOUNTER 2018-08-28 23:16 | Emergency (ER) | payer MEDICAID, OTHER ==
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
[2018-08-29] MEDS ORDERED: CHLORDIAZEPOXIDE 25MG PREPK#6 BTL TAKEHOME ONE (04:44)
[2018-08-29 05:09] VITALS: BP 127/80
== END 2018-08-29 05:09 | disposition home or self-care (01) ==
LOC: EDUNIT#
DX: F10.921 Alcohol use, unspecified with intoxication delirium (principal); F41.8 Other specified anxiety disorders; F20.9 Schizophrenia, unspecified; Z21 Asymptomatic human immunodeficiency virus [HIV] infection status; Z59.0 Homelessness; Z87.891 Personal history of nicotine dependence

== ENCOUNTER 2018-09-08 10:11 | Emergency (ER) | payer MEDICAID, OTHER ==
[2018-09-08 10:29] VITALS: BP 152/114
== END 2018-09-08 12:10 | disposition left against medical advice (07) ==
DX: Z53.21 Procedure and treatment not carried out due to patient leaving prior to being seen by health care provider (principal)

== ENCOUNTER 2018-09-11 10:39 | Emergency (ER) | payer MEDICAID ==
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
[2018-09-11 18:02] VITALS: BP 140/98
== END 2018-09-11 16:15 | disposition home or self-care (01) ==
LOC: EDUNIT#
DX: F10.920 Alcohol use, unspecified with intoxication, uncomplicated (principal); F32.9 Major depressive disorder, single episode, unspecified; F41.9 Anxiety disorder, unspecified; Z21 Asymptomatic human immunodeficiency virus [HIV] infection status; Z87.891 Personal history of nicotine dependence
CPT/HCPCS: G0480

== ENCOUNTER 2018-09-14 12:53 | Emergency (ER) | payer MEDICAID ==
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
[2018-09-14 15:19] VITALS: BP 115/70
== END 2018-09-14 15:19 | disposition home or self-care (01) ==
LOC: EEVIPCON 12:53
DX: J40 Bronchitis, not specified as acute or chronic (principal); F10.920 Alcohol use, unspecified with intoxication, uncomplicated

== ENCOUNTER 2018-09-17 12:23 | Emergency (ER) | payer MEDICAID ==
--- NOTE | 2018-09-17 13:23 | EDPHY ---
H & P Time Seen by Provider: 09/17/18 12:58 HPI/ROS: CHIEF COMPLAINT: "It hurts when I poop" HISTORY OF PRESENT ILLNESS: 37-year-old homeless male history of HIV, alcoholism, seen most recently in the ER yesterday for acute alcohol abuse, took an ambulance to the ER from the senior care for complaints of pain with defecation. Pain localized to the anus only, no buttock or abdominal or perineal pain. Denies rectal foreign body insertion. Complaining of blood on the toilet paper only when he wipes. Denies fever chills. Denies abdominal pain. Denies nausea or vomiting. No fever no chills. No flu-like symptoms. PRIMARY CARE PROVIDER: REVIEW OF SYSTEMS: 10 systems reviewed and negative with the exception of the elements mentioned in the history of present illness PAST MEDICAL & SURGICAL HISTORY: HIV-positive. Alcoholism. SOCIAL HISTORY: Homeless. PHYSICAL EXAM (Prior to examination, patient consented to physical exam, hands were washed and my usual and customary physical exam procedures followed) 1) GENERAL: Well-developed, well-nourished, alert and oriented. Sleeping, easily woken 2) HEAD: Normocephalic, atraumatic 3) HEENT: Pupils equal, round, reactive to light bilaterally. Sclera anicteric. 4) NECK: Full range of motion, no meningeal signs. 5) LUNGS: Clear auscultation bilaterally, no wheezes, no rhonchi, no retractions. 6) HEART: Regular rate and rhythm, no murmur, no heave, no gallop. 7) ABDOMEN: No guarding, no rebound, no focal tenderness, negative McBurney's, negative Redman's, negative Rovsing's, negative peritoneal sign, 8) MUSCULOSKELETAL: Moving all extremities, no focal areas of tenderness, no obvious trauma. No peripheral edema or discoloration. 9) BACK: No CVA tenderness, no midline vertebral tenderness, no fluctuance, no step-off, no obvious trauma, no visual or palpable abnormality. 10) SKIN: No rash, no petechiae. 11) RECTAL: No perianal erythema or induration to suggest perianal abscess. Anoscopy evaluation anal fissure fissures with no evidence of abscess or mass. DIFFERENTIAL DIAGNOSIS: In no particular order including but not limited to perianal abscess, perirectal abscess, internal hemorrhoid, external hemorrhoid, fissures Smoking Status: Former smoker Constitutional: Initial Vital Signs Temperature (C) 36.8 C 09/17/18 12:29 Heart Rate 85 09/17/18 12:29 Respiratory Rate 16 09/17/18 12:29 Blood Pressure 147/82 H 09/17/18 12:29 O2 Sat (%) 95 09/17/18 12:29 O2 Delivery Mode Room Air Allergies/Adverse Reactions: No Known Allergies Allergy (Verified 09/14/18 13:27) Home Medications: Medication Instructions Recorded Bictegrav/Emtricit/Tenofov Ala 1 each PO DAILY 08/19/18 [Biktarvy 50-200-25 mg Tablet] Famotidine [Pepcid 20 MG (*)] 20 mg PO BID 08/19/18 Ibuprofen [Motrin (*)] 600 mg PO Q6HRS PRN 08/19/18 Azithromycin [Zithromax] 250 mg PO DAILY #6 tab 09/14/18 Hydrocortisone Acetate [Anucort-Hc] 25 mg RC Q6 #15 supp.rect 09/17/18 MDM/Departure - MDM ED Course/Re-evaluation: 1:20 p.m.: Evidence of anal fissures with no evidence of perianal or perirectal abscess. No evidence of hemorrhoids. Plan will be discharge with recommendation of Sitz baths, Anucort, follow up with PCP. Patient feels comfortable being discharged. All questions and concerns addressed by myself. Patient given my usual and customary discharge precautions and instructions regarding their clinical impression. Care of patient under supervision of [ secondary] supervising physician Dr Rios [with whom I discussed case]. - Depart Disposition: Home, Routine, Self-Care Clinical Impression: Acute anal fissure Condition: Good Instructions: Anal Fissure (ED) Additional Instructions: A return to the ER if you develop blood in your stool Prescriptions: Hydrocortisone Acetate [Anucort-Hc] 25 mg RC Q6 #15 supp.rect Referrals: Meliza Zhong NP [Primary Care Provider] - 1-2 days without fail
[2018-09-17 13:33] VITALS: BP 138/80
== END 2018-09-17 13:33 | disposition home or self-care (01) ==
LOC: EDUNIT#
PROC: 0DJD8ZZ Inspection of Lower Intestinal Tract, Via Natural or Artificial Opening Endoscopic (ICD-10-PCS; principal; 2018-09-17)
DX: K60.0 Acute anal fissure (principal); Z21 Asymptomatic human immunodeficiency virus [HIV] infection status; Z87.891 Personal history of nicotine dependence; Z59.0 Homelessness

== ENCOUNTER 2018-11-17 13:49 | Emergency (ER) | payer MEDICAID ==
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
[2018-11-17] MEDS ORDERED: SKIN ADHESIVE (DERMABOND) 1 EACH TP ONE (14:03)
[2018-11-17] MEDS ORDERED: IBUPROFEN 800 MG TAB PO ONE (14:23)
[2018-11-17 14:31] VITALS: BP 120/90
== END 2018-11-17 14:30 | disposition home or self-care (01) ==
LOC: EDUNIT#
PROC: 0HQ0XZZ Repair Scalp Skin, External Approach (ICD-10-PCS; principal; 2018-11-17)
DX: S01.01XA Laceration without foreign body of scalp, initial encounter (principal); F10.920 Alcohol use, unspecified with intoxication, uncomplicated; Z59.0 Homelessness; Y00.XXXA Assault by blunt object, initial encounter

== ENCOUNTER 2018-11-18 13:55 | Emergency (ER) | payer MEDICAID ==
[2018-11-18 14:16] VITALS: BP 104/77
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
[2018-11-18] MEDS ORDERED: IBUPROFEN 800 MG TAB PO ONE (15:57)
== END 2018-11-18 16:02 | disposition home or self-care (01) ==
LOC: EDUNIT#
DX: S06.0X9A Concussion with loss of consciousness of unspecified duration, initial encounter (principal); B20 Human immunodeficiency virus [HIV] disease; W22.8XXD Striking against or struck by other objects, subsequent encounter

== ENCOUNTER 2018-11-18 21:32 | Emergency (ER) | payer MEDICAID ==
--- NOTE | 2018-11-18 22:05 | EDPHY ---
HPI/HX/ROS/PE/MDM Narrative: CHIEF COMPLAINT: Alcohol intoxication HPI: The patient is a 37-year-old male with a history of alcoholism and frequent ED visits for the same. He was seen in the emergency department approximately 7 hr ago for similar. He was found on the sidewalk too intoxicated to stand. He was too intoxicated to go to the [facility]. The patient denies any complaints. He arrives with a case full of harmonicas which he is actively playing, and a fishing pole. REVIEW OF SYSTEMS: Aside from elements discussed in the HPI, a comprehensive 10-point review of systems was reviewed and is negative. PMH: Alcoholism SOCIAL HISTORY: Homeless, alcohol abuse. PHYSICAL EXAM: General: Patient is appears severely intoxicated. Smells of alcohol. ENT: Eyes are normal to inspection. ENT inspection normal. Pupils are mid position and reactive bilaterally. Neck: Normal inspection. Full range of motion. Respiratory: No respiratory distress. Breath sounds normal bilaterally. Cardiovascular: Regular rate and rhythm. Normal heart sounds. Neuro: No focal motor or sensory deficits. General Time Seen by Provider: 11/18/18 21:33 Allergies/Adverse Reactions: No Known Allergies Allergy (Verified 11/18/18 14:14) Home Medications: Medication Instructions Recorded Bictegrav/Emtricit/Tenofov Ala 1 each PO DAILY 08/19/18 [Biktarvy 50-200-25 mg Tablet] Departure - Departure Disposition: Home, Routine, Self-Care Clinical Impression: Alcohol intoxication Condition: Good Instructions: Alcohol Intoxication (ED) Referrals: NONE *PRIMARY CARE P,. [Primary Care Provider] - As per Instructions
[2018-11-19] MEDS ORDERED: CHLORDIAZEPOXIDE 25MG PREPK#6 BTL TAKEHOME ONE ×2 (01:21→01:24)
[2018-11-19 01:39] VITALS: BP 115/87
== END 2018-11-19 01:39 | disposition home or self-care (01) ==
LOC: EDUNIT#
DX: F10.920 Alcohol use, unspecified with intoxication, uncomplicated (principal)

== ENCOUNTER 2018-11-29 19:45 | Emergency (ER) | payer MEDICAID ==
[2018-11-29] MEDS ORDERED: CHLORDIAZEPOXIDE 25MG PREPK#6 BTL TAKEHOME ONE (20:00)
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
[2018-11-29 20:29] VITALS: BP 123/74
== END 2018-11-29 20:29 | disposition home or self-care (01) ==
LOC: EDUNIT#
DX: S80.212A Abrasion, left knee, initial encounter (principal); F10.920 Alcohol use, unspecified with intoxication, uncomplicated; B20 Human immunodeficiency virus [HIV] disease; Y04.2XXA Assault by strike against or bumped into by another person, initial encounter

== ENCOUNTER 2018-12-08 22:11 | Emergency (ER) | payer MEDICAID ==
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
[2018-12-09 05:40] VITALS: BP 121/81
== END 2018-12-09 05:45 | disposition home or self-care (01) ==
LOC: EDUNIT#
DX: F10.10 Alcohol abuse, uncomplicated (principal); B20 Human immunodeficiency virus [HIV] disease; Z59.0 Homelessness

== ENCOUNTER 2018-12-10 22:36 | Emergency (ER) | payer MEDICAID ==
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
[2018-12-11 05:42] VITALS: BP 134/81
[2018-12-11] MEDS ORDERED: CHLORDIAZEPOXIDE 25MG PREPK#6 BTL TAKEHOME ONE (05:52)
== END 2018-12-11 06:02 | disposition home or self-care (01) ==
LOC: EDUNIT#
DX: F10.920 Alcohol use, unspecified with intoxication, uncomplicated (principal)

== ENCOUNTER 2018-12-19 16:30 | Emergency (ER) | payer MEDICAID | END 2018-12-19 17:49 | disposition home or self-care (01) ==

== ENCOUNTER 2019-01-01 16:55 | Emergency (ER) | payer MEDICAID | END 2019-01-01 17:50 | disposition home or self-care (01) ==

== ENCOUNTER 2019-01-15 21:48 | Emergency (ER) | payer MEDICAID | END 2019-01-15 22:23 ==